=== PATIENT | female | born 1945 | race Caucasian/White ===

== ENCOUNTER 2016-12-21 20:40 | Emergency (ER) | payer MEDICARE, BC ==
[~2016-12-21] VITALS: Ht 157.5 cm; Wt 52.9 kg
[2016-12-21 21:58] LABS: BLOOD UREA NITROGEN 13 mg/dL (7-18)
[2016-12-21 22:04] LABS: IS PT STATUS REG ER OR PRE ER? YES
[2016-12-21 23:09] VITALS: BP 110/54
== END 2016-12-21 23:19 | disposition home or self-care (01) ==
LOC: ED 23:06
DX: R00.2 Palpitations (principal); Z88.0 Allergy status to penicillin; Z88.8 Allergy status to other drugs, medicaments and biological substances
CPT/HCPCS: 36415; 71010; 80048; 80162; 82040; 83735; 84443; 84484; 85025; 93005; 99285

== ENCOUNTER 2017-05-23 16:39 | Emergency (ER) | payer MEDICARE, BC ==
[~2017-05-23] VITALS: Ht 160 cm; Wt 52.0 kg
[2017-05-23] MEDS ORDERED: KETOROLAC 30 MG/1 ML IM ONE (17:00)
[2017-05-23] MEDS ORDERED: KETOROLAC 30 MG/1 ML ONE (17:40)
[2017-05-23] MEDS ORDERED: ONDANSETRON ODT 4 MG ONE (17:48)
[2017-05-23] MEDS ORDERED: HYDROmorphone 2 MG/ML, 1ML ONE (17:50)
[2017-05-23] MEDS ORDERED: HYDROmorphone 1 MG/ML, 1ML IM ONE (18:00)
[2017-05-23] MEDS ORDERED: ONDANSETRON ODT 4 MG PO ONE (18:00)
[2017-05-23 19:46] VITALS: BP 144/78
== END 2017-05-23 19:49 | disposition home or self-care (01) ==
LOC: ED 19:43
DX: S00.03XA Contusion of scalp, initial encounter (principal); M79.7 Fibromyalgia; Z98.1 Arthrodesis status; W01.0XXA Fall on same level from slipping, tripping and stumbling without subsequent striking against object, initial encounter; Y93.89 Activity, other specified; Y99.8 Other external cause status; Y92.89 Other specified places as the place of occurrence of the external cause
CPT/HCPCS: 70450; 72110; 72125; 96372; 99284; J1170; Q0162

== ENCOUNTER 2017-06-05 19:06 | Emergency (ER) | payer MEDICARE, BC ==
[~2017-06-05] VITALS: Ht 160 cm; Wt 52.7 kg
[2017-06-05] MEDS ORDERED: ASPIRIN 81 MG TABLET CHEW ONE (19:50)
[2017-06-05] MEDS ORDERED: DIGO62.5 PO (20:00)
[2017-06-05] MEDS ORDERED: ASPIRIN 81 MG TABLET CHEW PO ONE (20:00)
[2017-06-05 20:02] LABS: BASOPHILS # (AUTO) 0.03 x10^3/uL (0-0.1); BASOPHILS % (AUTO) 0 % (0-1); EOSINOPHILS # (AUTO) 0.18 x10^3/uL (0-0.4); EOSINOPHILS % (AUTO) 2 % (1-7); LYMPHOCYTES # (AUTO) 2.46 x10^3/uL (1-3.4); LYMPHOCYTES % (AUTO) 26 % (22-44); MD NO; MEAN CORPUSCULAR HEMOGLOBIN 31.8 pg (27.0-34.8); MEAN CORPUSCULAR HGB CONC 33.2 g/dL (32.4-35.8); MEAN CORPUSCULAR VOLUME 95.8 fL (80-100); MONOCYTES % (AUTO) 6 % (2-9); NEUTROPHILS # (AUTO) 6.28 x10^3/uL (1.8-6.8); NEUTROPHILS % (AUTO) 66 % (42-75); PLATELET COUNT 246 x10^3/uL (130-400); RED BLOOD COUNT 4.64 x10^6/uL (3.82-5.3); RED CELL DISTRIBUTION WIDTH 13.5 % (9.6-15.2)
[2017-06-05 20:15] LABS: ALBUMIN 3.7 g/dL (3.4-5.0); ANION GAP 6 mmol/L (5-15); CHLORIDE 100 mmol/L (98-107)
[2017-06-05 20:20] LABS: ALANINE AMINOTRANSFERASE 45 U/L (12-78); ALKALINE PHOSPHATASE 51 U/L (45-117); BILIRUBIN,TOTAL 0.4 mg/dL (0.2-1.0); CREATININE 0.61 mg/dL (0.55-1.02); TROPONIN I < 0.015 ng/mL (0.000-0.045)
[2017-06-05] MEDS ORDERED: AMITRIPTYLINE 25 MG TABLET PO ONE (21:18)
[2017-06-05] MEDS ORDERED: AMITRIPTYLINE 50 MG TABLET PO ONE (21:18)
[2017-06-05 21:58] VITALS: BP 138/81
== END 2017-06-05 22:00 | disposition home or self-care (01) ==
LOC: ED 21:54
DX: J20.8 Acute bronchitis due to other specified organisms (principal); M94.0 Chondrocostal junction syndrome [Tietze]; I25.2 Old myocardial infarction; Z87.891 Personal history of nicotine dependence; Z86.73 Personal history of transient ischemic attack (TIA), and cerebral infarction without residual deficits
CPT/HCPCS: 36415; 71046; 80053; 83880; 84484; 85025; 93005; 99285

== ENCOUNTER 2017-06-07 07:45 | Emergency (ER) | payer MEDICARE, BC ==
[~2017-06-07] VITALS: Ht 160 cm; Wt 53.0 kg
[~2017-06-07 07:45] MED LIST: DIGO62.5 PO
[2017-06-07 12:38] LABS: MICROSCOPIC INDICATED
[2017-06-07 13:05] LABS: CULTURE INDICATED? YES
[2017-06-07 14:06] VITALS: BP 115/75
== END 2017-06-07 14:09 | disposition home or self-care (01) ==
LOC: ED 09:19
DX: F20.0 Paranoid schizophrenia (principal); N30.00 Acute cystitis without hematuria; Z86.73 Personal history of transient ischemic attack (TIA), and cerebral infarction without residual deficits; Z87.891 Personal history of nicotine dependence; I25.2 Old myocardial infarction
CPT/HCPCS: 81001; 87077; 87086; 87186; 99284

== ENCOUNTER 2017-10-22 14:23 | Inpatient (IN) | payer MEDICARE, BC ==
[~2017-10-22] VITALS: Ht 160 cm; Wt 58.8 kg
[~2017-10-22 14:23] MED LIST changes: +AMLO5TAB2 PO; +ARIP5TAB13 PO; +DIGO250T PO; -DIGO62.5 PO; +DIGO62.52 PO; +DONE10TA56 PO; +GABA300C10 PO; +LEVO125T5 PO; +LIOT5TAB10 PO; +LOSA25TA5 PO; +MEMA10TA PO; +MISO100T PO; +TRAZ50TA18 PO
[2017-10-22] MEDS ORDERED: SODIUM CHLORIDE 0.9% 1,000 ML IV ONE ×2 (15:06→17:47)
[2017-10-22] MEDS ORDERED: SODIUM CHLORIDE 0.9% 1,000ML IVBOLUS ONE (15:30)
[2017-10-22] MEDS ORDERED: SODIUM CHLORIDE FLUSH 10ML SYR IVF ONE (15:30)
[2017-10-22 15:44] LABS: CULTURE INDICATED? YES; MICROSCOPIC INDICATED
[2017-10-22] MEDS ORDERED: LOSA50TA6 PO (16:00)
[2017-10-22] MEDS ORDERED: TEMA15CA PO (16:00)
[2017-10-22] MEDS ORDERED: NAPR-850 PO (16:00)
[2017-10-22] MEDS ORDERED: VIT B6 PO (16:00)
[2017-10-22 16:01] LABS: BASOPHILS % (AUTO) 0 % (0-1); EOSINOPHILS # (AUTO) 0.04 x10^3/uL (0-0.4); EOSINOPHILS % (AUTO) 0 % (1-7); LYMPHOCYTES # (AUTO) 0.57 x10^3/uL (1-3.4); LYMPHOCYTES % (AUTO) 5 % (22-44); MD NO; MEAN CORPUSCULAR HEMOGLOBIN 31.3 pg (27.0-34.8); MEAN CORPUSCULAR HGB CONC 33.9 g/dL (32.4-35.8); MEAN CORPUSCULAR VOLUME 92.4 fL (80-100); MONOCYTES % (AUTO) 4 % (2-9); NEUTROPHILS # (AUTO) 10.89 x10^3/uL (1.8-6.8); NEUTROPHILS % (AUTO) 91 % (42-75); PLATELET COUNT 169 x10^3/uL (130-400); RED BLOOD COUNT 4.54 x10^6/uL (3.82-5.3); RED CELL DISTRIBUTION WIDTH 13.5 % (9.6-15.2)
[2017-10-22 16:12] LABS: ALBUMIN 3.5 g/dL (3.4-5.0); ANION GAP 7 mmol/L (5-15); CALCIUM 9.1 mg/dL (8.5-10.1); CHLORIDE 108 mmol/L (98-107)
[2017-10-22 16:26] LABS: ALANINE AMINOTRANSFERASE 25 U/L (12-78); ALKALINE PHOSPHATASE 33 U/L (45-117); CREATININE 0.63 mg/dL (0.55-1.02)
[2017-10-22 16:27] LABS: ACETONE, SERUM Negative (Negative)
[2017-10-22] MEDS ORDERED: CEFTRIAXONE PMX 1GM/50ML 50 ML IV ONE (17:30)
[2017-10-22] MEDS ORDERED: SODIUM CHLORIDE FLUSH 10ML SYR IVF PRN (18:00)
[2017-10-22] MEDS ORDERED: CEFTRIAXONE PMX 1GM/50ML 50 ML ONE (18:19)
[2017-10-22] MEDS: CEFTRIAXONE PMX 1GM/50ML 50 ML IV SCH (18:29)
[2017-10-22] MEDS ORDERED: ONDANSETRON 2MG/ML, 2ML IVPush PRN (18:30)
[2017-10-22] MEDS ORDERED: ACETAMINOPHEN 325 MG TABLET PO PRN (18:30)
[2017-10-22 18:40] LABS: FREE T4 (FREE THYROXINE) 1.33 ng/dL (0.76-1.46); THYROID STIMULATING HORMONE 0.03 mIU/L (0.358-3.740)
[2017-10-22] MEDS: HEPARIN 5,000 UNITS/ML, 1ML SQ SCH (19:27)
[2017-10-22] MEDS: NAPROXEN 500 MG TABLET PO SCH (19:28)
[2017-10-22] MEDS: TEMAZEPAM 15 MG CAPSULE PO SCH (19:28)
[2017-10-22] MEDS: ARIPIPRAZOLE 5 MG TABLET PO SCH (19:29)
[2017-10-22] MEDS: LOSARTAN 50MG TABLET PO SCH (19:30)
[2017-10-22] MEDS: GABAPENTIN 300 MG CAPSULE PO SCH (19:30)
[2017-10-22] MEDS: PYRIDOXINE 50MG TABLET PO SCH (19:30)
[2017-10-22] MEDS: NS + 20MEQ KCL 1,000 ML IV SCH (19:31)
[2017-10-22 20:30] VITALS: BP 101/56
[2017-10-22 22:55] LABS: CLOSTRIDIUM DIFFICILE ANTIGEN NEGATIVE; CLOSTRIDIUM DIFFICILE TOXIN NEGATIVE (Negative)
[2017-10-23 01:07] VITALS: BP 102/57
[2017-10-23 04:52] LABS: BASOPHILS # (AUTO) 0.01 x10^3/uL (0-0.1); BASOPHILS % (AUTO) 0 % (0-1); EOSINOPHILS # (AUTO) 0.24 x10^3/uL (0-0.4); EOSINOPHILS % (AUTO) 3 % (1-7); LYMPHOCYTES # (AUTO) 1.63 x10^3/uL (1-3.4); LYMPHOCYTES % (AUTO) 22 % (22-44); MD NO; MEAN CORPUSCULAR HEMOGLOBIN 30.8 pg (27.0-34.8); MEAN CORPUSCULAR HGB CONC 33.6 g/dL (32.4-35.8); MEAN CORPUSCULAR VOLUME 91.7 fL (80-100); MEAN PLATELET VOLUME 9.4 fL (7.4-10.4); MONOCYTES # (AUTO) 0.72 x10^3/uL (0.2-0.8); MONOCYTES % (AUTO) 10 % (2-9); NEUTROPHILS # (AUTO) 4.99 x10^3/uL (1.8-6.8); NEUTROPHILS % (AUTO) 66 % (42-75); PLATELET COUNT 144 x10^3/uL (130-400); RED BLOOD COUNT 3.98 x10^6/uL (3.82-5.3); RED CELL DISTRIBUTION WIDTH 13.9 % (9.6-15.2)
[2017-10-23 05:09] LABS: ALANINE AMINOTRANSFERASE 21 U/L (12-78); ALBUMIN 2.8 g/dL (3.4-5.0); ANION GAP 6 mmol/L (5-15); CALCIUM 8.8 mg/dL (8.5-10.1); CHLORIDE 111 mmol/L (98-107); CREATININE 0.49 mg/dL (0.55-1.02)
[2017-10-23 05:10] LABS: ALKALINE PHOSPHATASE 28 U/L (45-117); BILIRUBIN,TOTAL 0.8 mg/dL (0.2-1.0); TOTAL PROTEIN 5.9 g/dL (6.4-8.2)
[2017-10-23] MEDS: LEVOTHYROXINE 125 MCG TABLET PO SCH (05:22)
[2017-10-23] MEDS: HEPARIN 5,000 UNITS/ML, 1ML SQ SCH ×3 (05:22→18:30)
[2017-10-23] MEDS: NS + 20MEQ KCL 1,000 ML IV SCH ×2 (05:23→21:05)
[2017-10-23 07:17] VITALS: BP 112/63
[2017-10-23] MEDS: DIGOXIN 0.25 MG TABLET PO SCH (11:46)
[2017-10-23] MEDS: NAPROXEN 500 MG TABLET PO SCH ×2 (11:46→21:34)
[2017-10-23] MEDS: GABAPENTIN 300 MG CAPSULE PO SCH ×2 (11:46→21:34)
[2017-10-23] MEDS: PYRIDOXINE 50MG TABLET PO SCH ×2 (11:46→21:34)
[2017-10-23] MEDS: AMLODIPINE 5 MG TABLET PO SCH (11:47)
[2017-10-23] MEDS: LIOTHYRONINE 5 MCG TABLET PO SCH (11:47)
[2017-10-23 12:52] VITALS: BP 122/68
[2017-10-23] MEDS: CEFTRIAXONE PMX 1GM/50ML 50 ML IV SCH (19:21)
[2017-10-23 19:41] VITALS: BP 127/66
[2017-10-23] MEDS: ARIPIPRAZOLE 5 MG TABLET PO SCH (21:00)
[2017-10-23 21:33] VITALS: BP 146/76
[2017-10-23] MEDS: TEMAZEPAM 15 MG CAPSULE PO SCH (21:33)
[2017-10-23] MEDS: LOSARTAN 50MG TABLET PO SCH (21:34)
[2017-10-24] MEDS: HEPARIN 5,000 UNITS/ML, 1ML SQ SCH ×3 (02:50→18:45)
[2017-10-24 03:12] VITALS: BP 134/67
[2017-10-24 04:55] LABS: BASOPHILS # (AUTO) 0.01 x10^3/uL (0-0.1); BASOPHILS % (AUTO) 0 % (0-1); EOSINOPHILS # (AUTO) 0.31 x10^3/uL (0-0.4); EOSINOPHILS % (AUTO) 4 % (1-7); LYMPHOCYTES # (AUTO) 1.82 x10^3/uL (1-3.4); LYMPHOCYTES % (AUTO) 24 % (22-44); MD NO; MEAN CORPUSCULAR HEMOGLOBIN 30.5 pg (27.0-34.8); MEAN CORPUSCULAR HGB CONC 33.5 g/dL (32.4-35.8); MEAN CORPUSCULAR VOLUME 91.1 fL (80-100); MEAN PLATELET VOLUME 9.2 fL (7.4-10.4); MONOCYTES # (AUTO) 0.98 x10^3/uL (0.2-0.8); MONOCYTES % (AUTO) 13 % (2-9); NEUTROPHILS # (AUTO) 4.38 x10^3/uL (1.8-6.8); NEUTROPHILS % (AUTO) 58 % (42-75); PLATELET COUNT 145 x10^3/uL (130-400); RED BLOOD COUNT 3.98 x10^6/uL (3.82-5.3)
[2017-10-24 05:08] LABS: ANION GAP 8 mmol/L (5-15); CALCIUM 8.7 mg/dL (8.5-10.1); CHLORIDE 110 mmol/L (98-107)
[2017-10-24] MEDS: LEVOTHYROXINE 125 MCG TABLET PO SCH (06:11)
[2017-10-24 06:42] VITALS: BP 123/67
[2017-10-24] MEDS: NS + 20MEQ KCL 1,000 ML IV SCH (09:20)
[2017-10-24] MEDS: NAPROXEN 500 MG TABLET PO SCH ×2 (09:49→21:30)
[2017-10-24] MEDS: AMLODIPINE 5 MG TABLET PO SCH (09:49)
[2017-10-24] MEDS: LIOTHYRONINE 5 MCG TABLET PO SCH (09:49)
[2017-10-24] MEDS: DIGOXIN 0.25 MG TABLET PO SCH (09:49)
[2017-10-24] MEDS: PYRIDOXINE 50MG TABLET PO SCH ×2 (09:50→21:30)
[2017-10-24] MEDS: GABAPENTIN 300 MG CAPSULE PO SCH ×2 (09:50→21:29)
[2017-10-24 14:10] VITALS: BP 113/69
[2017-10-24] MEDS: CEFTRIAXONE PMX 1GM/50ML 50 ML IV SCH (18:38)
[2017-10-24 20:00] VITALS: BP 133/67
[2017-10-24] MEDS: ARIPIPRAZOLE 5 MG TABLET PO SCH (21:00)
[2017-10-24] MEDS: LOSARTAN 50MG TABLET PO SCH (21:29)
[2017-10-24] MEDS: TEMAZEPAM 15 MG CAPSULE PO SCH (21:29)
[2017-10-25 01:02] VITALS: BP 125/67
[2017-10-25] MEDS: HEPARIN 5,000 UNITS/ML, 1ML SQ SCH ×3 (03:15→17:49)
[2017-10-25 05:30] LABS: CHLORIDE 108 mmol/L (98-107)
[2017-10-25 05:36] LABS: ANION GAP 8 mmol/L (5-15); CALCIUM 8.7 mg/dL (8.5-10.1); CREATININE 0.51 mg/dL (0.55-1.02)
[2017-10-25] MEDS: LEVOTHYROXINE 125 MCG TABLET PO SCH (05:39)
[2017-10-25 07:44] VITALS: BP 115/58
[2017-10-25] MEDS: DIGOXIN 0.25 MG TABLET PO SCH (08:55)
[2017-10-25] MEDS: NAPROXEN 500 MG TABLET PO SCH ×2 (08:55→21:02)
[2017-10-25] MEDS: AMLODIPINE 5 MG TABLET PO SCH (08:56)
[2017-10-25] MEDS: LIOTHYRONINE 5 MCG TABLET PO SCH (08:58)
[2017-10-25] MEDS: PYRIDOXINE 50MG TABLET PO SCH ×2 (08:58→21:09)
[2017-10-25] MEDS: GABAPENTIN 300 MG CAPSULE PO SCH ×2 (08:59→21:03)
[2017-10-25 13:10] VITALS: BP 127/66
[2017-10-25 18:33] VITALS: BP 128/65
[2017-10-25] MEDS: ARIPIPRAZOLE 5 MG TABLET PO SCH (21:00)
[2017-10-25] MEDS: CEFDINIR 300 MG CAPSULE PO SCH (21:02)
[2017-10-25] MEDS: LOSARTAN 50MG TABLET PO SCH (21:03)
[2017-10-25] MEDS: TEMAZEPAM 15 MG CAPSULE PO SCH (21:09)
[2017-10-26 00:56] VITALS: BP 145/80
[2017-10-26] MEDS: HEPARIN 5,000 UNITS/ML, 1ML SQ SCH ×3 (02:30→18:30)
[2017-10-26] MEDS: LEVOTHYROXINE 125 MCG TABLET PO SCH (05:46)
[2017-10-26 08:00] VITALS: BP 119/65
[2017-10-26] MEDS: GABAPENTIN 300 MG CAPSULE PO SCH ×2 (09:56→20:43)
[2017-10-26] MEDS: PYRIDOXINE 50MG TABLET PO SCH ×2 (09:56→20:44)
[2017-10-26] MEDS: CEFDINIR 300 MG CAPSULE PO SCH (09:56)
[2017-10-26] MEDS: NAPROXEN 500 MG TABLET PO SCH ×2 (09:57→20:43)
[2017-10-26] MEDS: DIGOXIN 0.25 MG TABLET PO SCH (09:58)
[2017-10-26] MEDS: AMLODIPINE 5 MG TABLET PO SCH (09:58)
[2017-10-26] MEDS: LIOTHYRONINE 5 MCG TABLET PO SCH (09:58)
[2017-10-26] MEDS ORDERED: INSULIN GLARGINE 100 UNITS/ML, PEN SQ-INSULIN ONE (12:30)
[2017-10-26 14:00] VITALS: BP 122/76
[2017-10-26 19:49] VITALS: BP 125/67
[2017-10-26] MEDS: ARIPIPRAZOLE 5 MG TABLET PO SCH (20:44)
[2017-10-26] MEDS: LOSARTAN 50MG TABLET PO SCH (20:44)
[2017-10-26] MEDS: TEMAZEPAM 15 MG CAPSULE PO SCH (20:54)
[2017-10-27 00:17] VITALS: BP 121/63
[2017-10-27] MEDS: HEPARIN 5,000 UNITS/ML, 1ML SQ SCH ×3 (03:20→17:53)
[2017-10-27] MEDS: LEVOTHYROXINE 125 MCG TABLET PO SCH (06:28)
[2017-10-27 08:23] VITALS: BP 107/63
[2017-10-27] MEDS: DIGOXIN 0.25 MG TABLET PO SCH (08:42)
[2017-10-27] MEDS: AMLODIPINE 5 MG TABLET PO SCH (08:43)
[2017-10-27] MEDS: NAPROXEN 500 MG TABLET PO SCH ×2 (08:58→20:23)
[2017-10-27] MEDS: LIOTHYRONINE 5 MCG TABLET PO SCH (08:58)
[2017-10-27] MEDS: GABAPENTIN 300 MG CAPSULE PO SCH ×2 (08:58→20:22)
[2017-10-27] MEDS: PYRIDOXINE 50MG TABLET PO SCH ×2 (10:14→20:22)
[2017-10-27 14:28] VITALS: BP 120/65
[2017-10-27] MEDS ORDERED: AMLO5TAB2 PO (16:23)
[2017-10-27] MEDS ORDERED: ONDA4TAB13 SL (16:23)
[2017-10-27 19:18] VITALS: BP 130/68
[2017-10-27] MEDS: TEMAZEPAM 15 MG CAPSULE PO SCH (20:21)
[2017-10-27] MEDS: ARIPIPRAZOLE 5 MG TABLET PO SCH (20:22)
[2017-10-27] MEDS: LOSARTAN 50MG TABLET PO SCH (20:22)
[2017-10-28 01:33] VITALS: BP 122/64
[2017-10-28] MEDS: HEPARIN 5,000 UNITS/ML, 1ML SQ SCH ×3 (02:30→18:08)
[2017-10-28] MEDS: LEVOTHYROXINE 125 MCG TABLET PO SCH (06:19)
[2017-10-28 07:56] VITALS: BP 102/54
[2017-10-28] MEDS: LIOTHYRONINE 5 MCG TABLET PO SCH (11:09)
[2017-10-28] MEDS: DIGOXIN 0.25 MG TABLET PO SCH (11:09)
[2017-10-28] MEDS: GABAPENTIN 300 MG CAPSULE PO SCH ×2 (11:10→20:56)
[2017-10-28] MEDS: PYRIDOXINE 50MG TABLET PO SCH ×2 (11:10→20:54)
[2017-10-28] MEDS: AMLODIPINE 5 MG TABLET PO SCH (11:10)
[2017-10-28] MEDS: NAPROXEN 500 MG TABLET PO SCH ×2 (11:11→20:55)
[2017-10-28 14:19] VITALS: BP 113/65
[2017-10-28 19:44] VITALS: BP 131/71
[2017-10-28] MEDS: LOSARTAN 50MG TABLET PO SCH (20:55)
[2017-10-28] MEDS: TEMAZEPAM 15 MG CAPSULE PO SCH (20:56)
[2017-10-28] MEDS: ARIPIPRAZOLE 5 MG TABLET PO SCH (20:57)
[2017-10-29 01:26] VITALS: BP 124/66
[2017-10-29] MEDS: HEPARIN 5,000 UNITS/ML, 1ML SQ SCH ×3 (05:00→21:00)
[2017-10-29] MEDS: LEVOTHYROXINE 125 MCG TABLET PO SCH (05:59)
[2017-10-29] MEDS: NAPROXEN 500 MG TABLET PO SCH ×2 (09:00→21:00)
[2017-10-29 09:01] VITALS: BP 126/72
[2017-10-29] MEDS: DIGOXIN 0.25 MG TABLET PO SCH (09:35)
[2017-10-29] MEDS: AMLODIPINE 5 MG TABLET PO SCH (09:35)
[2017-10-29] MEDS: LIOTHYRONINE 5 MCG TABLET PO SCH (09:36)
[2017-10-29] MEDS: GABAPENTIN 300 MG CAPSULE PO SCH ×2 (09:36→21:40)
[2017-10-29] MEDS: PYRIDOXINE 50MG TABLET PO SCH ×2 (09:42→21:41)
[2017-10-29 14:43] VITALS: BP 127/70
[2017-10-29 19:18] VITALS: BP 136/68
[2017-10-29] MEDS: ARIPIPRAZOLE 5 MG TABLET PO SCH (21:00)
[2017-10-29] MEDS: LOSARTAN 50MG TABLET PO SCH (21:40)
[2017-10-29] MEDS: TEMAZEPAM 15 MG CAPSULE PO SCH (21:41)
[2017-10-30] MEDS: HEPARIN 5,000 UNITS/ML, 1ML SQ SCH (00:52)
[2017-10-30 01:36] VITALS: BP 144/72
[2017-10-30 05:01] LABS: BASOPHILS # (AUTO) 0.04 x10^3/uL (0-0.1); BASOPHILS % (AUTO) 1 % (0-1); EOSINOPHILS # (AUTO) 0.42 x10^3/uL (0-0.4); EOSINOPHILS % (AUTO) 5 % (1-7); LYMPHOCYTES # (AUTO) 3.04 x10^3/uL (1-3.4); LYMPHOCYTES % (AUTO) 33 % (22-44); MD NO; MEAN CORPUSCULAR HEMOGLOBIN 30.7 pg (27.0-34.8); MEAN CORPUSCULAR HGB CONC 33.3 g/dL (32.4-35.8); MEAN CORPUSCULAR VOLUME 92.3 fL (80-100); MEAN PLATELET VOLUME 9.2 fL (7.4-10.4); MONOCYTES # (AUTO) 0.85 x10^3/uL (0.2-0.8); MONOCYTES % (AUTO) 9 % (2-9); NEUTROPHILS # (AUTO) 4.78 x10^3/uL (1.8-6.8); NEUTROPHILS % (AUTO) 52 % (42-75); PLATELET COUNT 197 x10^3/uL (130-400); RED BLOOD COUNT 4.29 x10^6/uL (3.82-5.3); RED CELL DISTRIBUTION WIDTH 13.6 % (9.6-15.2)
[2017-10-30 05:09] LABS: ALBUMIN 3.4 g/dL (3.4-5.0); ANION GAP 5 mmol/L (5-15); CALCIUM 9.4 mg/dL (8.5-10.1); CHLORIDE 108 mmol/L (98-107)
[2017-10-30 05:14] LABS: ALANINE AMINOTRANSFERASE 35 U/L (12-78); ALKALINE PHOSPHATASE 39 U/L (45-117); BILIRUBIN,TOTAL 0.4 mg/dL (0.2-1.0); TOTAL PROTEIN 6.7 g/dL (6.4-8.2)
[2017-10-30] MEDS: LEVOTHYROXINE 125 MCG TABLET PO SCH (05:43)
[2017-10-30 08:34] VITALS: BP 116/65
[2017-10-30] MEDS ORDERED: NYSTATIN CRM 15GM TP PRN (09:00)
[2017-10-30] MEDS: NAPROXEN 500 MG TABLET PO SCH (09:00)
[2017-10-30] MEDS: GABAPENTIN 300 MG CAPSULE PO SCH (09:45)
[2017-10-30] MEDS: PYRIDOXINE 50MG TABLET PO SCH (09:45)
[2017-10-30] MEDS: LIOTHYRONINE 5 MCG TABLET PO SCH (09:46)
[2017-10-30] MEDS: DIGOXIN 0.25 MG TABLET PO SCH (09:47)
[2017-10-30] MEDS: AMLODIPINE 5 MG TABLET PO SCH (09:55)
[2017-10-30 14:00] VITALS: BP 128/69
[2017-10-30] MEDS ORDERED: ONDA4TAB13 SL (16:59)
== END 2017-10-30 15:04 | disposition home or self-care (01) | DRG 392 ==
LOC: ED 17:39 → EDIP 17:47 → 3NE 18:35
PROVIDERS: ADMIT Hospitalist; ATTEND Internal Medicine
DX: A08.11 Acute gastroenteropathy due to Norwalk agent (principal); N30.00 Acute cystitis without hematuria; I10 Essential (primary) hypertension; I25.2 Old myocardial infarction; Z86.73 Personal history of transient ischemic attack (TIA), and cerebral infarction without residual deficits; I25.10 Atherosclerotic heart disease of native coronary artery without angina pectoris; F03.90 Unspecified dementia, unspecified severity, without behavioral disturbance, psychotic disturbance, mood disturbance, and anxiety; E03.9 Hypothyroidism, unspecified; E86.0 Dehydration; F20.9 Schizophrenia, unspecified; Z98.1 Arthrodesis status; Z90.49 Acquired absence of other specified parts of digestive tract; Z88.0 Allergy status to penicillin; Z88.8 Allergy status to other drugs, medicaments and biological substances
CPT/HCPCS: 36415; 74022; 80048; 80053; 80162; 81001; 82010; 83605; 83690; 83735; 84100; 84439; 84443; 84481; 85025; 87040; 87046; 87086; 87324; 87427; 87798; 89055; 93005; 96360; 96361; J0696; J1644; J3480; J7030

== ENCOUNTER 2018-02-23 19:13 | Inpatient (IN) | payer MEDICARE, BC ==
[~2018-02-23] VITALS: Ht 160 cm; Wt 53.0 kg
[~2018-02-23 19:13] MED LIST changes: -AMLO5TAB2 PO; +AMLO5TAB7 PO; -LOSA25TA5 PO; +LOSA25TA6 PO; +LOSA50TA7 PO; +NAPR-850 PO; +ONDA4TAB13 SL; +TEMA15CA PO; +TRAZ-136 PO; -TRAZ50TA18 PO; +VIT B6 PO
[2018-02-23] MEDS ORDERED: ZIPRASIDONE 20 MG INJ IM ONE ×3 (19:17→20:00)
[2018-02-23] MEDS ORDERED: LORazepam 2 MG/ML, 1ML ONE ×2 (20:17→21:06)
[2018-02-23] MEDS ORDERED: LORazepam 2 MG/ML, 1ML IM ONE (20:30)
[2018-02-23] MEDS ORDERED: LORazepam 2 MG/ML, 1ML IVPush ONE (21:30)
[2018-02-23 21:34] LABS: MEAN CORPUSCULAR HEMOGLOBIN 30.9 pg (27.0-34.8); MEAN CORPUSCULAR HGB CONC 33.5 g/dL (32.4-35.8); MEAN CORPUSCULAR VOLUME 92.1 fL (80-100); MEAN PLATELET VOLUME 9.2 fL (7.4-10.4); PLATELET COUNT 257 x10^3/uL (130-400); RED BLOOD COUNT 4.62 x10^6/uL (3.82-5.3); RED CELL DISTRIBUTION WIDTH 13.8 % (9.6-15.2)
[2018-02-23 21:40] LABS: ALANINE AMINOTRANSFERASE 103 U/L (12-78); ALBUMIN 4.6 g/dL (3.4-5.0); ANION GAP 14 mmol/L (5-15); CALCIUM 9.7 mg/dL (8.5-10.1); CHLORIDE 110 mmol/L (98-107)
[2018-02-23 21:50] LABS: BASOPHILS # (AUTO) 0.03 x10^3/uL (0-0.1); BASOPHILS % (AUTO) 0 % (0-1); EOSINOPHILS % (AUTO) 0 % (1-7); LYMPHOCYTES # (AUTO) 1.44 x10^3/uL (1-3.4); LYMPHOCYTES % (AUTO) 8 % (22-44); MD SCAN; MONOCYTES # (AUTO) 0.93 x10^3/uL (0.2-0.8); MONOCYTES % (AUTO) 5 % (2-9); NEUTROPHILS % (AUTO) 87 % (42-75)
[2018-02-23 21:54] LABS: ALKALINE PHOSPHATASE 51 U/L (45-117); CREATININE 0.89 mg/dL (0.55-1.02)
[2018-02-23] MEDS ORDERED: NAPR-685 PO (21:59)
[2018-02-23] MEDS ORDERED: PARO30TA3 PO (21:59)
[2018-02-23] MEDS ORDERED: DONE10TA14 PO (21:59)
[2018-02-23 22:00] LABS: MICROSCOPIC INDICATED
[2018-02-23 22:06] LABS: CULTURE INDICATED? NO
[2018-02-23] MEDS ORDERED: SODIUM CHLORIDE FLUSH 10ML SYR IVF ONE (22:30)
[2018-02-23] MEDS ORDERED: SODIUM CHLORIDE 0.9% 1,000ML IVBOLUS ONE (22:30)
[2018-02-24] MEDS ORDERED: POLYETHYLENE GLYCOL 17 GM PACKET PO PRN (00:30)
[2018-02-24] MEDS ORDERED: hydrALAzine 20 MG/ML, 1ML IVPush PRN (00:30)
[2018-02-24] MEDS ORDERED: ONDANSETRON 2MG/ML, 2ML IVPush PRN (00:30)
[2018-02-24] MEDS ORDERED: PROMETHAZINE 25 MG/ML, 1ML IM PRN (00:30)
[2018-02-24] MEDS ORDERED: DOCUSATE 100 MG CAPSULE PO PRN (00:30)
[2018-02-24] MEDS ORDERED: BISACODYL 10 MG SUPP PR PRN (00:30)
[2018-02-24] MEDS ORDERED: ONDANSETRON ODT 4 MG PO PRN ×2 (00:30)
[2018-02-24 00:42] VITALS: BP 126/77
[2018-02-24 00:48] LABS: HEMOGLOBIN A1C 5.3 % (4.2-6.3)
[2018-02-24] MEDS ORDERED: OMNIPAQUE 350 MG/ML, 100ML BOTTLE ONE (00:58)
[2018-02-24] MEDS: SODIUM CHLORIDE 0.9% 1,000 ML IV SCH ×3 (01:12→16:13)
[2018-02-24] MEDS: HEPARIN 5,000 UNITS/ML, 1ML SQ SCH ×3 (01:12→16:30)
[2018-02-24 01:39] LABS: FREE T4 (FREE THYROXINE) 1.07 ng/dL (0.76-1.46); THYROID STIMULATING HORMONE 0.066 mIU/L (0.358-3.740)
[2018-02-24] MEDS ORDERED: LEVOTHYROXINE 125 MCG TABLET PO SCH (06:00)
[2018-02-24 06:56] VITALS: BP 126/67
[2018-02-24 07:17] LABS: BASOPHILS # (AUTO) 0.14 x10^3/uL (0-0.1); BASOPHILS % (AUTO) 1 % (0-1); EOSINOPHILS # (AUTO) 0.01 x10^3/uL (0-0.4); EOSINOPHILS % (AUTO) 0 % (1-7); LYMPHOCYTES % (AUTO) 14 % (22-44); MD NO; MEAN CORPUSCULAR HEMOGLOBIN 30.9 pg (27.0-34.8); MEAN CORPUSCULAR HGB CONC 33.8 g/dL (32.4-35.8); MEAN CORPUSCULAR VOLUME 91.5 fL (80-100); MEAN PLATELET VOLUME 8.8 fL (7.4-10.4); MONOCYTES # (AUTO) 1.44 x10^3/uL (0.2-0.8); MONOCYTES % (AUTO) 9 % (2-9); NEUTROPHILS # (AUTO) 12.91 x10^3/uL (1.8-6.8); NEUTROPHILS % (AUTO) 76 % (42-75); PLATELET COUNT 226 x10^3/uL (130-400); RED BLOOD COUNT 4.14 x10^6/uL (3.82-5.3); RED CELL DISTRIBUTION WIDTH 13.8 % (9.6-15.2)
[2018-02-24 07:31] LABS: ALANINE AMINOTRANSFERASE 112 U/L (12-78); ANION GAP 9 mmol/L (5-15); CALCIUM 8.9 mg/dL (8.5-10.1); CHLORIDE 113 mmol/L (98-107); CREATININE 0.53 mg/dL (0.55-1.02)
[2018-02-24 07:33] LABS: ALKALINE PHOSPHATASE 46 U/L (45-117); CHOL/HDL RATIO 3.1; CHOLESTEROL, TOTAL 179 mg/dL (140-239); HDL CHOL % 32 % (28-40); HDL CHOLESTEROL (DIRECT) 58 mg/dL (40-60); LDL CHOLESTEROL,CALCULATED 92 mg/dL (54-169); LDL/HDL RATIO 1.6 (0.5-3.0); TOTAL PROTEIN 7.8 g/dL (6.4-8.2); TRIGLYCERIDES 147 mg/dL (50-200); VLDL CHOLESTEROL 29 mg/dL (0-25)
[2018-02-24] MEDS: DIGOXIN 0.25 MG TABLET PO SCH (08:18)
[2018-02-24] MEDS: DONEPEZIL 10 MG TABLET PO SCH (08:19)
[2018-02-24] MEDS: LIOTHYRONINE 5 MCG TABLET PO SCH (08:20)
[2018-02-24] MEDS: PYRIDOXINE 50MG TABLET PO SCH ×2 (08:24→21:00)
[2018-02-24] MEDS: GABAPENTIN 300 MG CAPSULE PO SCH ×2 (08:24→21:00)
[2018-02-24] MEDS: PAROXETINE 10 MG TABLET PO SCH (08:25)
[2018-02-24] MEDS: AMLODIPINE 2.5 MG TABLET PO SCH (08:49)
[2018-02-24] MEDS ORDERED: ZIPRASIDONE 20 MG INJ IM PRN (12:00)
[2018-02-24] MEDS ORDERED: AMIT75TA PO (13:07)
[2018-02-24] MEDS: TEMPLATE NON-FORMULARY MED. (Losartan Potassium** 100 MG) PO SCH (21:00)
[2018-02-24] MEDS: TEMAZEPAM 15 MG CAPSULE PO SCH (21:00)
[2018-02-25] MEDS: SODIUM CHLORIDE 0.9% 1,000 ML IV SCH (00:13)
[2018-02-25] MEDS: HEPARIN 5,000 UNITS/ML, 1ML SQ SCH ×3 (00:30→16:30)
[2018-02-25] MEDS: LEVOTHYROXINE 100 MCG TABLET PO SCH (06:00)
[2018-02-25] MEDS: PAROXETINE 10 MG TABLET PO SCH (09:00)
[2018-02-25] MEDS: DONEPEZIL 10 MG TABLET PO SCH (09:00)
[2018-02-25] MEDS: DIGOXIN 0.25 MG TABLET PO SCH (09:00)
[2018-02-25] MEDS: GABAPENTIN 300 MG CAPSULE PO SCH ×2 (09:00→20:55)
[2018-02-25] MEDS: PYRIDOXINE 50MG TABLET PO SCH ×2 (09:00→20:54)
[2018-02-25] MEDS: LIOTHYRONINE 5 MCG TABLET PO SCH (09:00)
[2018-02-25] MEDS: AMLODIPINE 2.5 MG TABLET PO SCH (09:00)
[2018-02-25] MEDS: TEMPLATE NON-FORMULARY MED. (Losartan Potassium** 100 MG) PO SCH (20:54)
[2018-02-25] MEDS: TEMAZEPAM 15 MG CAPSULE PO SCH (20:55)
[2018-02-26] MEDS: HEPARIN 5,000 UNITS/ML, 1ML SQ SCH ×3 (00:36→16:30)
[2018-02-26 05:42] LABS: BASOPHILS # (AUTO) 0.02 x10^3/uL (0-0.1); BASOPHILS % (AUTO) 0 % (0-1); EOSINOPHILS % (AUTO) 0 % (1-7); LYMPHOCYTES # (AUTO) 2.18 x10^3/uL (1-3.4); LYMPHOCYTES % (AUTO) 20 % (22-44); MD NO; MEAN CORPUSCULAR HGB CONC 33.3 g/dL (32.4-35.8); MEAN CORPUSCULAR VOLUME 93.2 fL (80-100); MEAN PLATELET VOLUME 9.6 fL (7.4-10.4); MONOCYTES # (AUTO) 1.14 x10^3/uL (0.2-0.8); MONOCYTES % (AUTO) 10 % (2-9); NEUTROPHILS # (AUTO) 7.62 x10^3/uL (1.8-6.8); NEUTROPHILS % (AUTO) 70 % (42-75); PLATELET COUNT 200 x10^3/uL (130-400)
[2018-02-26 05:50] LABS: ALANINE AMINOTRANSFERASE 128 U/L (12-78); ALBUMIN 3.7 g/dL (3.4-5.0); ANION GAP 9 mmol/L (5-15); CALCIUM 9.2 mg/dL (8.5-10.1); CHLORIDE 120 mmol/L (98-107); CREATININE 0.52 mg/dL (0.55-1.02)
[2018-02-26 05:52] LABS: ALKALINE PHOSPHATASE 44 U/L (45-117); BILIRUBIN,TOTAL 0.9 mg/dL (0.2-1.0); TOTAL PROTEIN 7.3 g/dL (6.4-8.2)
[2018-02-26] MEDS: LEVOTHYROXINE 100 MCG TABLET PO SCH (06:14)
[2018-02-26] MEDS: DIGOXIN 0.25 MG TABLET PO SCH (09:00)
[2018-02-26] MEDS: GABAPENTIN 300 MG CAPSULE PO SCH ×2 (09:00→20:13)
[2018-02-26] MEDS: PYRIDOXINE 50MG TABLET PO SCH ×2 (09:00→20:13)
[2018-02-26] MEDS: LIOTHYRONINE 5 MCG TABLET PO SCH (09:00)
[2018-02-26] MEDS: AMLODIPINE 2.5 MG TABLET PO SCH (09:00)
[2018-02-26] MEDS: PAROXETINE 10 MG TABLET PO SCH (09:00)
[2018-02-26] MEDS: DONEPEZIL 10 MG TABLET PO SCH (09:00)
[2018-02-26] MEDS ORDERED: GABA300C10 PO (12:14)
[2018-02-26] MEDS ORDERED: GABAPENTIN 300 MG CAPSULE PO ONE (12:25)
[2018-02-26] MEDS: DEXTROSE 5% 1,000 ML IV SCH (16:33)
[2018-02-26 19:44] VITALS: BP 112/67
[2018-02-26] MEDS: TEMAZEPAM 15 MG CAPSULE PO SCH (20:13)
[2018-02-26] MEDS: TEMPLATE NON-FORMULARY MED. (Losartan Potassium** 100 MG) PO SCH (20:13)
[2018-02-27] MEDS: HEPARIN 5,000 UNITS/ML, 1ML SQ SCH ×2 (00:30→08:30)
[2018-02-27] MEDS: DEXTROSE 5% 1,000 ML IV SCH ×2 (01:46→09:11)
[2018-02-27] MEDS: LEVOTHYROXINE 100 MCG TABLET PO SCH (06:26)
[2018-02-27 08:18] LABS: ANION GAP 6 mmol/L (5-15); CALCIUM 8.2 mg/dL (8.5-10.1); CHLORIDE 110 mmol/L (98-107); CREATININE 0.45 mg/dL (0.55-1.02)
[2018-02-27 08:20] LABS: BASOPHILS # (AUTO) 0.02 x10^3/uL (0-0.1); BASOPHILS % (AUTO) 0 % (0-1); EOSINOPHILS # (AUTO) 0.15 x10^3/uL (0-0.4); EOSINOPHILS % (AUTO) 2 % (1-7); LYMPHOCYTES # (AUTO) 2.35 x10^3/uL (1-3.4); LYMPHOCYTES % (AUTO) 27 % (22-44); MD NO; MEAN CORPUSCULAR HEMOGLOBIN 31.3 pg (27.0-34.8); MEAN PLATELET VOLUME 8.8 fL (7.4-10.4); MONOCYTES # (AUTO) 0.67 x10^3/uL (0.2-0.8); MONOCYTES % (AUTO) 8 % (2-9); NEUTROPHILS # (AUTO) 5.48 x10^3/uL (1.8-6.8); NEUTROPHILS % (AUTO) 63 % (42-75); PLATELET COUNT 173 x10^3/uL (130-400); RED BLOOD COUNT 3.94 x10^6/uL (3.82-5.3); RED CELL DISTRIBUTION WIDTH 13.9 % (9.6-15.2)
[2018-02-27] MEDS ORDERED: SERTRALINE 50MG TABLET PO SCH (09:00)
[2018-02-27] MEDS: GABAPENTIN 300 MG CAPSULE PO SCH (09:09)
[2018-02-27] MEDS: PYRIDOXINE 50MG TABLET PO SCH (09:10)
[2018-02-27] MEDS: DIGOXIN 0.25 MG TABLET PO SCH (09:10)
[2018-02-27] MEDS: LIOTHYRONINE 5 MCG TABLET PO SCH (09:10)
[2018-02-27] MEDS: AMLODIPINE 2.5 MG TABLET PO SCH (09:10)
[2018-02-27] MEDS: DONEPEZIL 10 MG TABLET PO SCH (09:22)
[2018-02-27 09:32] VITALS: BP 101/51
[2018-02-27] MEDS ORDERED: TEMAZEPAM 15 MG CAPSULE PO PRN (13:00)
[2018-02-27] MEDS ORDERED: SERTRALINE 50MG TABLET PO ONE (13:00)
[2018-02-27 13:47] VITALS: BP 119/57
[2018-02-27] MEDS: POTASSIUM CHLORIDE 20 MEQ TAB.ER.PRT PO SCH ×2 (13:59→15:46)
[2018-02-27] MEDS ORDERED: ZIPR20VI IM (15:07)
[2018-02-27] MEDS ORDERED: ONDA4TAB13 PO (15:07)
[2018-02-27] MEDS ORDERED: SERT50TA5 PO (15:07)
[2018-02-27] MEDS ORDERED: MELA3TAB2 PO (15:07)
[2018-02-27] MEDS ORDERED: LEVO125T5 PO (15:07)
[2018-02-27] MEDS ORDERED: GABA300C10 PO (15:07)
[2018-02-27] MEDS ORDERED: DOCU-131 PO (15:07)
[2018-02-27] MEDS ORDERED: MELATONIN 3 MG TABLET PO SCH (21:00)
[2018-02-28] MEDS ORDERED: SERTRALINE 50MG TABLET PO SCH (09:00)
== END 2018-02-27 16:30 | DRG 885 ==
LOC: ED 23:18 → EDIP 23:49 → 3NE 02-24 00:38
PROVIDERS: ADMIT Internal Medicine; ATTEND Internal Medicine
DX: F23 Brief psychotic disorder (principal); G93.40 Encephalopathy, unspecified; R65.10 Systemic inflammatory response syndrome (SIRS) of non-infectious origin without acute organ dysfunction; E87.2 Acidosis; E87.0 Hyperosmolality and hypernatremia; E87.1 Hypo-osmolality and hyponatremia; E86.0 Dehydration; D72.829 Elevated white blood cell count, unspecified; I10 Essential (primary) hypertension; G30.9 Alzheimer's disease, unspecified; E03.9 Hypothyroidism, unspecified; G62.9 Polyneuropathy, unspecified; F02.80 Dementia in other diseases classified elsewhere, unspecified severity, without behavioral disturbance, psychotic disturbance, mood disturbance, and anxiety; E87.6 Hypokalemia; F20.9 Schizophrenia, unspecified; F43.10 Post-traumatic stress disorder, unspecified; I25.2 Old myocardial infarction; Z86.73 Personal history of transient ischemic attack (TIA), and cerebral infarction without residual deficits; M79.7 Fibromyalgia; Z79.899 Other long term (current) drug therapy; Z90.49 Acquired absence of other specified parts of digestive tract; Z96.642 Presence of left artificial hip joint; Z98.1 Arthrodesis status; Z88.0 Allergy status to penicillin; Z88.8 Allergy status to other drugs, medicaments and biological substances
CPT/HCPCS: 36415; 70460; 71045; 74177; 80048; 80053; 80061; 80074; 80162; 81001; 82140; 82306; 82607; 83036; 83605; 83735; 84100; 84439; 84443; 85025; 87040; 93005; 96361; 96372; 96374; G0378; J1644; J3486; J7070; Q9967; J2060; J7030

== ENCOUNTER 2018-02-27 17:34 | Inpatient (IN) | payer MEDICARE, BC ==
[~2018-02-27] VITALS: Ht 158.8 cm; Wt 54.2 kg
[~2018-02-27 17:34] MED LIST changes: +AMIT75TA PO; +DOCU-131 PO; +DONE10TA14 PO; +MELA3TAB2 PO; +NAPR-685 PO; +ONDA4TAB13 PO; +PARO30TA3 PO; +SERT50TA5 PO; +ZIPR20VI IM
[2018-02-27 19:21] VITALS: BP 112/66
[2018-02-27 19:33] LABS: CHOL/HDL RATIO 3.7; FREE T4 (FREE THYROXINE) 1.22 ng/dL (0.76-1.46); LDL/HDL RATIO 1.9 (0.5-3.0); THYROID STIMULATING HORMONE 0.341 mIU/L (0.358-3.740)
[2018-02-27 20:08] VITALS: BP 112/66
[2018-02-27] MEDS: TEMAZEPAM 15 MG CAPSULE PO SCH (21:24)
[2018-02-27] MEDS: AMITRIPTYLINE 75 MG TABLET PO SCH (21:24)
[2018-02-27] MEDS: GABAPENTIN 300 MG CAPSULE PO SCH (21:24)
[2018-02-28 07:56] VITALS: BP 136/81
[2018-02-28] MEDS: GABAPENTIN 300 MG CAPSULE PO SCH ×2 (08:47→20:16)
[2018-02-28] MEDS: ACETAMINOPHEN 325 MG TABLET PO PRN ×2 (08:56→13:00)
[2018-02-28] MEDS ORDERED: DIGOXIN 0.25 MG TABLET PO SCH (09:00)
[2018-02-28] MEDS: SERTRALINE 100MG TABLET PO SCH (12:20)
[2018-02-28 19:35] VITALS: BP 121/77
[2018-02-28] MEDS: TEMAZEPAM 15 MG CAPSULE PO SCH (20:17)
[2018-02-28] MEDS: MELATONIN 3 MG TABLET PO SCH (20:17)
[2018-02-28] MEDS: AMITRIPTYLINE 75 MG TABLET PO SCH (20:17)
[2018-03-01] MEDS: LEVOTHYROXINE 50 MCG TABLET PO SCH (06:14)
[2018-03-01 07:52] VITALS: BP 137/81
[2018-03-01] MEDS: GABAPENTIN 300 MG CAPSULE PO SCH ×2 (09:02→20:23)
[2018-03-01] MEDS: SERTRALINE 100MG TABLET PO SCH (09:02)
[2018-03-01] MEDS: ACETAMINOPHEN 325 MG TABLET PO PRN ×2 (09:03→16:54)
[2018-03-01] MEDS: DOCUSATE 100 MG CAPSULE PO PRN (09:12)
[2018-03-01 20:04] VITALS: BP 122/70
[2018-03-01] MEDS: AMITRIPTYLINE 75 MG TABLET PO SCH (20:23)
[2018-03-01] MEDS: MELATONIN 3 MG TABLET PO SCH (20:23)
[2018-03-01] MEDS: TEMAZEPAM 15 MG CAPSULE PO SCH (21:28)
[2018-03-02] MEDS: LEVOTHYROXINE 50 MCG TABLET PO SCH (06:13)
[2018-03-02 08:00] VITALS: BP 121/72
[2018-03-02] MEDS: ACETAMINOPHEN 325 MG TABLET PO PRN ×3 (08:00→20:10)
[2018-03-02] MEDS: SERTRALINE 100MG TABLET PO SCH (08:00)
[2018-03-02] MEDS: DOCUSATE 100 MG CAPSULE PO PRN ×2 (08:00→20:10)
[2018-03-02] MEDS: GABAPENTIN 300 MG CAPSULE PO SCH ×2 (08:01→20:10)
[2018-03-02 19:43] VITALS: BP 108/58
[2018-03-02] MEDS: TEMAZEPAM 15 MG CAPSULE PO SCH (20:10)
[2018-03-02] MEDS: MELATONIN 3 MG TABLET PO SCH (20:10)
[2018-03-02] MEDS: AMITRIPTYLINE 75 MG TABLET PO SCH (20:10)
[2018-03-03] MEDS: DOCUSATE 100 MG CAPSULE PO PRN ×2 (07:34→20:08)
[2018-03-03] MEDS: ACETAMINOPHEN 325 MG TABLET PO PRN (07:34)
[2018-03-03] MEDS: LEVOTHYROXINE 50 MCG TABLET PO SCH (07:34)
[2018-03-03 07:55] VITALS: BP 121/86
[2018-03-03] MEDS: SERTRALINE 100MG TABLET PO SCH ×2 (09:49→09:58)
[2018-03-03] MEDS: GABAPENTIN 300 MG CAPSULE PO SCH ×2 (09:49→20:07)
[2018-03-03] MEDS: POLYETHYLENE GLYCOL 17 GM PACKET NG PRN (11:21)
[2018-03-03 19:45] VITALS: BP 116/72
[2018-03-03] MEDS: AMITRIPTYLINE 75 MG TABLET PO SCH (20:08)
[2018-03-03] MEDS: MELATONIN 3 MG TABLET PO SCH (20:08)
[2018-03-03] MEDS: BUPROPION SR 100 MG TABLET PO SCH (20:08)
[2018-03-03] MEDS: TEMAZEPAM 15 MG CAPSULE PO SCH (21:04)
[2018-03-04] MEDS: LEVOTHYROXINE 50 MCG TABLET PO SCH (07:26)
[2018-03-04 07:59] VITALS: BP 116/74
[2018-03-04] MEDS: GABAPENTIN 300 MG CAPSULE PO SCH ×2 (08:30→20:50)
[2018-03-04] MEDS: ACETAMINOPHEN 325 MG TABLET PO PRN ×2 (08:30→20:50)
[2018-03-04] MEDS: BUPROPION SR 100 MG TABLET PO SCH ×2 (08:30→20:50)
[2018-03-04] MEDS: FLUOXETINE 10 MG CAP PO SCH (08:30)
[2018-03-04] MEDS: POLYETHYLENE GLYCOL 17 GM PACKET NG PRN (12:11)
[2018-03-04] MEDS: DOCUSATE 100 MG CAPSULE PO PRN ×2 (12:11→20:50)
[2018-03-04 19:58] VITALS: BP 123/87
[2018-03-04] MEDS: MELATONIN 3 MG TABLET PO SCH (20:50)
[2018-03-04] MEDS: AMITRIPTYLINE 75 MG TABLET PO SCH (20:50)
[2018-03-04] MEDS: TEMAZEPAM 15 MG CAPSULE PO SCH (20:50)
[2018-03-05] MEDS: LEVOTHYROXINE 50 MCG TABLET PO SCH (07:20)
[2018-03-05 07:59] VITALS: BP 143/83
[2018-03-05] MEDS: POLYETHYLENE GLYCOL 17 GM PACKET NG PRN (08:29)
[2018-03-05] MEDS: GABAPENTIN 300 MG CAPSULE PO SCH ×2 (08:30→20:33)
[2018-03-05] MEDS: DOCUSATE 100 MG CAPSULE PO PRN ×2 (08:30→20:43)
[2018-03-05] MEDS: BUPROPION SR 100 MG TABLET PO SCH ×2 (08:30→20:33)
[2018-03-05] MEDS: FLUOXETINE 10 MG CAP PO SCH (08:30)
[2018-03-05] MEDS: ACETAMINOPHEN 325 MG TABLET PO PRN ×2 (09:31→14:11)
[2018-03-05 19:46] VITALS: BP 129/76
[2018-03-05] MEDS: MELATONIN 3 MG TABLET PO SCH (20:33)
[2018-03-05] MEDS: TEMAZEPAM 15 MG CAPSULE PO SCH (20:33)
[2018-03-05] MEDS: AMITRIPTYLINE 75 MG TABLET PO SCH (20:34)
[2018-03-06 07:42] VITALS: BP 137/77
[2018-03-06] MEDS: BUPROPION SR 100 MG TABLET PO SCH ×2 (08:12→20:42)
[2018-03-06] MEDS: FLUOXETINE 10 MG CAP PO SCH (08:12)
[2018-03-06] MEDS: LEVOTHYROXINE 50 MCG TABLET PO SCH (08:13)
[2018-03-06] MEDS: GABAPENTIN 300 MG CAPSULE PO SCH ×2 (08:13→20:42)
[2018-03-06] MEDS: DOCUSATE 100 MG CAPSULE PO PRN ×2 (08:50→20:42)
[2018-03-06] MEDS: ACETAMINOPHEN 325 MG TABLET PO PRN (18:38)
[2018-03-06 19:46] VITALS: BP 130/73
[2018-03-06] MEDS: AMITRIPTYLINE 75 MG TABLET PO SCH (20:42)
[2018-03-06] MEDS: TEMAZEPAM 15 MG CAPSULE PO SCH (20:42)
[2018-03-06] MEDS ORDERED: MELATONIN 5 MG TABLET PO SCH (21:00)
[2018-03-07 07:27] VITALS: BP 137/77
[2018-03-07 07:30] VITALS: BP 137/77
[2018-03-07] MEDS: LEVOTHYROXINE 50 MCG TABLET PO SCH (07:33)
[2018-03-07] MEDS: FLUOXETINE 10 MG CAP PO SCH (07:33)
[2018-03-07] MEDS: BUPROPION SR 100 MG TABLET PO SCH (07:33)
[2018-03-07] MEDS: GABAPENTIN 300 MG CAPSULE PO SCH (07:34)
[2018-03-07] MEDS: DOCUSATE 100 MG CAPSULE PO PRN (07:45)
[2018-03-07] MEDS ORDERED: BUPR-173 PO (07:50)
[2018-03-07] MEDS ORDERED: LEVO50TA PO (07:50)
[2018-03-07] MEDS ORDERED: GABA300C10 PO (07:50)
[2018-03-07] MEDS ORDERED: FLUO10CA7 PO (07:50)
[2018-03-07] MEDS ORDERED: MELA5TAB19 PO (07:50)
[2018-03-07] MEDS ORDERED: AMIT75TA PO (07:50)
[2018-03-07] MEDS: ACETAMINOPHEN 325 MG TABLET PO PRN (10:45)
== END 2018-03-07 13:15 | disposition home or self-care (01) | DRG 57 ==
LOC: UNDOADMIN 17:34 → 3E 17:34
PROVIDERS: ADMIT Psychiatry & Neurology Psychosomatic Medicine; ATTEND Psychiatry & Neurology Psychosomatic Medicine
DX: G30.9 Alzheimer's disease, unspecified (principal); F23 Brief psychotic disorder; R65.10 Systemic inflammatory response syndrome (SIRS) of non-infectious origin without acute organ dysfunction; F43.10 Post-traumatic stress disorder, unspecified; I10 Essential (primary) hypertension; E03.9 Hypothyroidism, unspecified; D72.829 Elevated white blood cell count, unspecified; G89.29 Other chronic pain; Z96.642 Presence of left artificial hip joint; F02.80 Dementia in other diseases classified elsewhere, unspecified severity, without behavioral disturbance, psychotic disturbance, mood disturbance, and anxiety; F32.9 Major depressive disorder, single episode, unspecified; G62.9 Polyneuropathy, unspecified; G47.00 Insomnia, unspecified; F42.9 Obsessive-compulsive disorder, unspecified; A60.00 Herpesviral infection of urogenital system, unspecified; Z86.73 Personal history of transient ischemic attack (TIA), and cerebral infarction without residual deficits; Z90.89 Acquired absence of other organs; Z88.8 Allergy status to other drugs, medicaments and biological substances; Z88.0 Allergy status to penicillin; Z98.1 Arthrodesis status; Z90.49 Acquired absence of other specified parts of digestive tract; Z79.899 Other long term (current) drug therapy; Z79.890 Hormone replacement therapy; Z82.49 Family history of ischemic heart disease and other diseases of the circulatory system
CPT/HCPCS: 36415; 80061; 82140; 84439; 84443; 86592; 92523-GN

== ENCOUNTER 2018-03-12 14:05 | Emergency (ER) | payer MEDICARE, BC ==
[~2018-03-12] VITALS: Ht 157.5 cm; Wt 54.0 kg
[~2018-03-12 14:05] MED LIST changes: +BUPR-173 PO; +FLUO10CA7 PO; +LEVO50TA PO; +MELA5TAB19 PO
[2018-03-12] MEDS ORDERED: SODIUM CHLORIDE 0.9% 1,000ML IVBOLUS ONE (15:00)
[2018-03-12 15:13] LABS: BASOPHILS # (AUTO) 0.03 x10^3/uL (0-0.1); BASOPHILS % (AUTO) 0 % (0-1); EOSINOPHILS # (AUTO) 0.15 x10^3/uL (0-0.4); EOSINOPHILS % (AUTO) 2 % (1-7); LYMPHOCYTES # (AUTO) 2.61 x10^3/uL (1-3.4); LYMPHOCYTES % (AUTO) 30 % (22-44); MD NO; MEAN CORPUSCULAR HEMOGLOBIN 31.2 pg (27.0-34.8); MEAN CORPUSCULAR HGB CONC 33.4 g/dL (32.4-35.8); MEAN CORPUSCULAR VOLUME 93.3 fL (80-100); MEAN PLATELET VOLUME 8.4 fL (7.4-10.4); MONOCYTES # (AUTO) 0.65 x10^3/uL (0.2-0.8); MONOCYTES % (AUTO) 7 % (2-9); NEUTROPHILS # (AUTO) 5.33 x10^3/uL (1.8-6.8); NEUTROPHILS % (AUTO) 61 % (42-75); PLATELET COUNT 225 x10^3/uL (130-400); RED BLOOD COUNT 4.07 x10^6/uL (3.82-5.3); RED CELL DISTRIBUTION WIDTH 14.5 % (9.6-15.2)
[2018-03-12 15:25] LABS: ALANINE AMINOTRANSFERASE 36 U/L (12-78); ALBUMIN 3.8 g/dL (3.4-5.0); ANION GAP 7 mmol/L (5-15); CALCIUM 9.2 mg/dL (8.5-10.1); CHLORIDE 109 mmol/L (98-107); CREATININE 0.67 mg/dL (0.55-1.02)
[2018-03-12 15:27] LABS: ALKALINE PHOSPHATASE 49 U/L (45-117); BILIRUBIN,TOTAL 0.5 mg/dL (0.2-1.0); TOTAL PROTEIN 7.8 g/dL (6.4-8.2)
[2018-03-12 17:12] VITALS: BP 131/62
== END 2018-03-12 17:14 | disposition home or self-care (01) ==
LOC: ED 16:50
DX: R13.12 Dysphagia, oropharyngeal phase (principal); K21.9 Gastro-esophageal reflux disease without esophagitis
CPT/HCPCS: 36415; 76700; 80053; 83690; 85025; 99285

== ENCOUNTER 2018-04-15 12:05 | Observation (INO) | payer MEDICARE, BC ==
[~2018-04-15] VITALS: Ht 157.5 cm; Wt 53.4 kg
[~2018-04-15 12:05] MED LIST changes: +AMLO-150 PO; -AMLO5TAB7 PO; -TRAZ-136 PO; +TRAZ50TA66 PO
[2018-04-15] MEDS ORDERED: ZIPRASIDONE 20 MG INJ IM ONE ×2 (12:49→13:30)
[2018-04-15 13:30] LABS: BASOPHILS # (AUTO) 0.02 x10^3/uL (0-0.1); BASOPHILS % (AUTO) 0 % (0-1); EOSINOPHILS # (AUTO) 0.06 x10^3/uL (0-0.4); EOSINOPHILS % (AUTO) 1 % (1-7); LYMPHOCYTES # (AUTO) 1.76 x10^3/uL (1-3.4); LYMPHOCYTES % (AUTO) 18 % (22-44); MD NO; MEAN CORPUSCULAR HEMOGLOBIN 31.9 pg (27.0-34.8); MEAN CORPUSCULAR HGB CONC 34.1 g/dL (32.4-35.8); MEAN CORPUSCULAR VOLUME 93.3 fL (80-100); MEAN PLATELET VOLUME 7.9 fL (7.4-10.4); MONOCYTES # (AUTO) 0.67 x10^3/uL (0.2-0.8); MONOCYTES % (AUTO) 7 % (2-9); NEUTROPHILS # (AUTO) 7.32 x10^3/uL (1.8-6.8); NEUTROPHILS % (AUTO) 74 % (42-75); PLATELET COUNT 323 x10^3/uL (130-400); RED BLOOD COUNT 4.23 x10^6/uL (3.82-5.3); RED CELL DISTRIBUTION WIDTH 13.8 % (9.6-15.2)
[2018-04-15 13:39] LABS: ALANINE AMINOTRANSFERASE 23 U/L (12-78); ALBUMIN 3.8 g/dL (3.4-5.0); ANION GAP 13 mmol/L (5-15); CALCIUM 9.5 mg/dL (8.5-10.1); CHLORIDE 101 mmol/L (98-107); CREATININE 0.53 mg/dL (0.55-1.02)
[2018-04-15 13:45] LABS: ALKALINE PHOSPHATASE 55 U/L (45-117); BILIRUBIN,TOTAL 0.6 mg/dL (0.2-1.0); TOTAL PROTEIN 8.1 g/dL (6.4-8.2)
[2018-04-15 13:46] LABS: SALICYLATE LEVEL < 1.7 mg/dL (2.8-20.0)
[2018-04-15 13:47] LABS: ACETAMINOPHEN < 2 mcg/mL (10-30)
[2018-04-15 18:02] LABS: AMPHETAMINE SCREEN, URINE Negative (Negative); BARBITURATE SCREEN, URINE Negative (Negative); BENZODIAZEPINE SCREEN, URINE Negative (Negative); CANNABINOID SCREEN, URINE Negative (Negative); COCAINE SCREEN, URINE Negative (Negative); METHADONE SCREEN, URINE Negative (Negative); OPIATE SCREEN, URINE Negative (Negative)
[2018-04-15] MEDS ORDERED: ONDANSETRON ODT 4 MG PO PRN (21:00)
[2018-04-15] MEDS ORDERED: DOCUSATE 100 MG CAPSULE PO PRN ×2 (21:00)
[2018-04-15] MEDS ORDERED: ZIPRASIDONE 20 MG INJ IM PRN (21:00)
[2018-04-15] MEDS: AMITRIPTYLINE 75 MG TABLET PO SCH (23:00)
[2018-04-15] MEDS: TEMAZEPAM 15 MG CAPSULE PO SCH (23:00)
[2018-04-16] MEDS: ZIPRASIDONE 20MG CAPSULE PO SCH ×3 (02:50→20:43)
[2018-04-16] MEDS: LEVOTHYROXINE 50 MCG TABLET PO SCH (06:21)
[2018-04-16] MEDS ORDERED: ZIPRASIDONE 20MG CAPSULE ONE (10:34)
[2018-04-16] MEDS ORDERED: FLUOXETINE 10 MG CAP ONE (12:14)
[2018-04-16] MEDS: FLUOXETINE 10 MG CAP PO SCH (12:24)
[2018-04-16] MEDS: DIGOXIN 0.25 MG TABLET PO SCH (12:25)
[2018-04-16] MEDS: BUPROPION 75 MG TABLET PO SCH (13:01)
[2018-04-16] MEDS ORDERED: ACETAMINOPHEN 325 MG TABLET ONE (14:22)
[2018-04-16] MEDS: ACETAMINOPHEN 325 MG TABLET PO PRN ×2 (14:24→21:35)
[2018-04-16 16:44] VITALS: BP 142/76
[2018-04-16 19:32] VITALS: BP 118/72
[2018-04-16] MEDS: TEMAZEPAM 15 MG CAPSULE PO SCH (20:43)
[2018-04-16] MEDS: AMITRIPTYLINE 75 MG TABLET PO SCH (20:43)
[2018-04-16] MEDS ORDERED: ZIPRASIDONE 20MG CAPSULE PO SCH (21:00)
[2018-04-17 07:53] VITALS: BP 117/70
[2018-04-17] MEDS: LEVOTHYROXINE 50 MCG TABLET PO SCH (08:51)
[2018-04-17] MEDS: DIGOXIN 0.25 MG TABLET PO SCH (08:52)
[2018-04-17] MEDS: ZIPRASIDONE 20MG CAPSULE PO SCH ×2 (08:52→21:44)
[2018-04-17] MEDS: BUPROPION 75 MG TABLET PO SCH (08:52)
[2018-04-17] MEDS: FLUOXETINE 10 MG CAP PO SCH (08:52)
[2018-04-17] MEDS: ACETAMINOPHEN 325 MG TABLET PO PRN ×2 (09:47→22:20)
[2018-04-17 20:13] VITALS: BP 121/84
[2018-04-17] MEDS: AMITRIPTYLINE 75 MG TABLET PO SCH (21:44)
[2018-04-17] MEDS: TEMAZEPAM 15 MG CAPSULE PO SCH (21:44)
[2018-04-18 08:16] VITALS: BP 113/77
[2018-04-18] MEDS: LEVOTHYROXINE 50 MCG TABLET PO SCH (08:22)
[2018-04-18] MEDS: BUPROPION 75 MG TABLET PO SCH (08:27)
[2018-04-18] MEDS: DIGOXIN 0.25 MG TABLET PO SCH (08:27)
[2018-04-18] MEDS: FLUOXETINE 10 MG CAP PO SCH (08:27)
[2018-04-18] MEDS: ZIPRASIDONE 20MG CAPSULE PO SCH ×2 (08:29→21:06)
[2018-04-18 19:27] VITALS: BP 120/67
[2018-04-18] MEDS: AMITRIPTYLINE 75 MG TABLET PO SCH (21:06)
[2018-04-18] MEDS: TEMAZEPAM 15 MG CAPSULE PO SCH (21:07)
[2018-04-19] MEDS: BUPROPION 75 MG TABLET PO SCH (08:13)
[2018-04-19] MEDS: FLUOXETINE 10 MG CAP PO SCH (08:13)
[2018-04-19] MEDS: LEVOTHYROXINE 50 MCG TABLET PO SCH (08:13)
[2018-04-19] MEDS: DIGOXIN 0.25 MG TABLET PO SCH (08:13)
[2018-04-19] MEDS: ZIPRASIDONE 20MG CAPSULE PO SCH ×2 (08:14→21:26)
[2018-04-19 08:30] VITALS: BP 130/72
[2018-04-19 20:41] VITALS: BP 148/87
[2018-04-19] MEDS: AMITRIPTYLINE 75 MG TABLET PO SCH (21:26)
[2018-04-19] MEDS: TEMAZEPAM 15 MG CAPSULE PO SCH (21:26)
[2018-04-20] MEDS: ACETAMINOPHEN 325 MG TABLET PO PRN ×2 (04:17→21:44)
[2018-04-20] MEDS: LEVOTHYROXINE 50 MCG TABLET PO SCH (06:39)
[2018-04-20] MEDS: FLUOXETINE 10 MG CAP PO SCH (08:16)
[2018-04-20] MEDS: ZIPRASIDONE 20MG CAPSULE PO SCH ×2 (08:16→20:18)
[2018-04-20] MEDS: BUPROPION 75 MG TABLET PO SCH (08:16)
[2018-04-20] MEDS: DIGOXIN 0.25 MG TABLET PO SCH (08:16)
[2018-04-20 08:28] VITALS: BP 136/74
[2018-04-20] MEDS: AMITRIPTYLINE 75 MG TABLET PO SCH (20:18)
[2018-04-20] MEDS: TEMAZEPAM 15 MG CAPSULE PO SCH (20:18)
[2018-04-20 20:22] VITALS: BP 143/85
[2018-04-21] MEDS: LEVOTHYROXINE 50 MCG TABLET PO SCH (05:08)
[2018-04-21 08:05] VITALS: BP 108/65
[2018-04-21] MEDS: ZIPRASIDONE 20MG CAPSULE PO SCH (09:06)
[2018-04-21] MEDS: BUPROPION 75 MG TABLET PO SCH (09:06)
[2018-04-21] MEDS: DIGOXIN 0.25 MG TABLET PO SCH (09:07)
[2018-04-21] MEDS: FLUOXETINE 10 MG CAP PO SCH (09:07)
[2018-04-21 13:45] VITALS: BP 109/78
[2018-04-21] MEDS: ACETAMINOPHEN 325 MG TABLET PO PRN (15:18)
== END 2018-04-21 16:16 ==
LOC: ED 19:40 → EDIP 20:17 → 2N 04-16 16:37
PROVIDERS: ADMIT Internal Medicine; ATTEND Internal Medicine
DX: R45.1 Restlessness and agitation (principal); F43.10 Post-traumatic stress disorder, unspecified; R41.9 Unspecified symptoms and signs involving cognitive functions and awareness; F32.9 Major depressive disorder, single episode, unspecified; G47.00 Insomnia, unspecified; E03.9 Hypothyroidism, unspecified; I10 Essential (primary) hypertension; G62.9 Polyneuropathy, unspecified; M19.90 Unspecified osteoarthritis, unspecified site; G89.29 Other chronic pain; Z79.899 Other long term (current) drug therapy; Z86.73 Personal history of transient ischemic attack (TIA), and cerebral infarction without residual deficits; Z87.891 Personal history of nicotine dependence; Z91.14 Patient's other noncompliance with medication regimen; Z96.642 Presence of left artificial hip joint; Z98.1 Arthrodesis status
CPT/HCPCS: 36415; 80053; 80162; 80307; 80329; 85025; 96372; 99284; G0378; J3486; G0480

== ENCOUNTER 2018-08-19 16:34 | Inpatient (IN) | payer MEDICARE, BC ==
[~2018-08-19] VITALS: Ht 158.8 cm; Wt 49.5 kg
[~2018-08-19 16:34] MED LIST changes: +LOSA25TA25 PO; -LOSA25TA6 PO; +LOSA50TA14 PO; -LOSA50TA7 PO; +SERT50TA28 PO; -SERT50TA5 PO
--- NOTE | 2018-08-19 16:41 | NUR ---
BIB EMS FROM OFFICE OF REGAN LOZOYA LCSW PLACED ON HOLD FOR PARANOID, DELUSIONAL BEHAVIOR. PT COOPERATIVE. CLOTHES REMOVED AND CHANGED INTO GOWN. PT PERMITTED TO LEAVE HER UNDERWEAR ON. BELONGINGS PLACED IN BELONGINGS BAG AND SECURED IN LOCKER. PT VSS, BENSON NOTED, SITTER AT DOORWAY FOR PT SAFETY.
[2018-08-19 17:28] LABS: BASOPHILS # (AUTO) 0.03 x10^3/uL (0-0.1); BASOPHILS % (AUTO) 0 % (0-1); EOSINOPHILS # (AUTO) 0.07 x10^3/uL (0-0.4); EOSINOPHILS % (AUTO) 1 % (1-7); LYMPHOCYTES # (AUTO) 2.25 x10^3/uL (1-3.4); LYMPHOCYTES % (AUTO) 23 % (22-44); MD NO; MEAN CORPUSCULAR HGB CONC 32.7 g/dL (32.4-35.8); MEAN CORPUSCULAR VOLUME 94.7 fL (80-100); MONOCYTES # (AUTO) 0.63 x10^3/uL (0.2-0.8); MONOCYTES % (AUTO) 7 % (2-9); NEUTROPHILS # (AUTO) 6.65 x10^3/uL (1.8-6.8); NEUTROPHILS % (AUTO) 69 % (42-75); PLATELET COUNT 214 x10^3/uL (130-400); RED BLOOD COUNT 4.32 x10^6/uL (3.82-5.3); RED CELL DISTRIBUTION WIDTH 14.2 % (9.6-15.2)
[2018-08-19 17:38] LABS: ALBUMIN 3.8 g/dL (3.4-5.0); ANION GAP 8 mmol/L (5-15); CALCIUM 9.3 mg/dL (8.5-10.1); CHLORIDE 106 mmol/L (98-107)
[2018-08-19 17:43] LABS: ALANINE AMINOTRANSFERASE 41 U/L (12-78); ALKALINE PHOSPHATASE 39 U/L (45-117); BILIRUBIN,TOTAL 0.5 mg/dL (0.2-1.0); CREATININE 0.53 mg/dL (0.55-1.02)
[2018-08-19 17:45] LABS: ACETAMINOPHEN < 2 mcg/mL (10-30); SALICYLATE LEVEL < 1.7 mg/dL (2.8-20.0)
--- NOTE | 2018-08-19 18:10 | NUR ---
RECEIVED REPORT FROM VANESSA ROBINS. PT RESTING IN BED. NADN. FARFAN. AWARE OF NEED FOR UDS SAMPLE. STATES SHE CANNOT PROVIDE SAMPLE AT THIS TIME. SITTER AWARE OF NEED FOR UDS AND CUP LEFT W/ SITTER.
--- NOTE | 2018-08-19 18:11 | NUR ---
SW FOR ROOM 3 TO BE REACHED AT [phone] AND SPEAK SUP EBONY. PER .NET ARCHITECT PT IS NOT WELCOME BACK TO CARE HOME. PT HAS PERSONAL BELONGINGS THERE. May GONZALEZ.
--- NOTE | 2018-08-19 18:46 | NUR ---
PT REPORT FROM SAKINA MENDEZ. THIS RN TO ASSUME CARE OF PT. PT ASKING FOR TYLENOL. NOTIFIED. ROLLER DOORS IN PLACE. CALL LIGHT WITHIN REACH.
--- NOTE | 2018-08-19 19:06 | NUR ---
REPORT GIVEN TO FORTUNATO CHAVIRA RN.
--- NOTE | 2018-08-19 20:14 | NUR ---
No immediate needs from pt. Resting comfortably on hospital bed. Provided urine sample at this time. Sent to lab.
[2018-08-19 20:36] LABS: AMPHETAMINE SCREEN, URINE Negative (Negative); BARBITURATE SCREEN, URINE Negative (Negative); BENZODIAZEPINE SCREEN, URINE Negative (Negative); CANNABINOID SCREEN, URINE Negative (Negative); COCAINE SCREEN, URINE Negative (Negative); METHADONE SCREEN, URINE Negative (Negative); OPIATE SCREEN, URINE Negative (Negative)
--- NOTE | 2018-08-19 21:22 | NUR ---
No immediate needs from pt. Resting comfortably on hospital bed.
--- NOTE | 2018-08-19 21:29 | NUR ---
PT PACKET FAXED TO [facility], [facility], [facility], [facility], [facility], [facility]
--- NOTE | 2018-08-19 21:54 | NUR ---
Pt states unable to sleep until she gets her night time medications. She is unsure of what those are. notified.
--- NOTE | 2018-08-19 22:18 | NUR ---
Pt resting comfortably on hospital bed. No immediate needs. Sitter in hallway. states no night time medications until psychiatrist evaluation. Relayed to pt. Pt on board w/ POC.
--- NOTE | 2018-08-19 22:36 | NUR ---
at bedside for assessment.
[2018-08-19 23:51] LABS: MICROSCOPIC AUTO
--- NOTE | 2018-08-20 00:14 | NUR ---
Pt resting comfortably on hospital bed. No immediate needs. Sitter in hallway.
--- NOTE | 2018-08-20 00:16 | NUR ---
[facility] contacted this RN and states their psychiatrist will not accept pt until a UA is completed. Awating UA results.
--- NOTE | 2018-08-20 00:42 | NUR ---
break rn. pt resting calmly, nadn, sitter at doorway for continous monitoring.
--- NOTE | 2018-08-20 01:15 | NUR ---
Pt resting comfortably on hospital bed. No immediate needs. Sitter in hallway.
--- NOTE | 2018-08-20 02:14 | NUR ---
Pt resting comfortably on hospital bed. No immediate needs. Sitter in hallway.
--- NOTE | 2018-08-20 03:41 | NUR ---
Pt resting comfortably on hospital bed. No immediate needs. Sitter in hallway.
--- NOTE | 2018-08-20 05:11 | NUR ---
Pt resting comfortably on hospital bed. No immediate needs. Sitter in hallway.
--- NOTE | 2018-08-20 05:23 | NUR ---
JONY FROM [facility] CALLED AND DENIED PT DUE TO THEIR DOCTOR BELIEVING THE CONDITION IS CAUSED BY THE UTI.
--- NOTE | 2018-08-20 06:41 | NUR ---
Pt resting comfortably on hospital bed. No immediate needs. Sitter in hallway.
--- NOTE | 2018-08-20 06:53 | NUR ---
PT REPORT TO ALBA MENDEZ.
--- NOTE | 2018-08-20 07:15 | NUR ---
PT. IS RESTING WITHOUT CONCERNS. SITTER OUTSIDE. ROOM SECURED.
--- NOTE | 2018-08-20 08:18 | NUR ---
PT. WAS GIVEN BREAKFAST.
--- NOTE | 2018-08-20 09:03 | NUR ---
PT RESTING WITH NO CONCERNS, SITTER OUTSIDE ROOM
[2018-08-20] MEDS ORDERED: CEFDINIR 300 MG CAPSULE ONE ×2 (09:21→20:26)
[2018-08-20] MEDS ORDERED: ACETAMINOPHEN 325 MG TABLET ONE (09:21)
[2018-08-20] MEDS ORDERED: LORazepam 1MG TABLET ONE (09:21)
[2018-08-20] MEDS: CEFDINIR 300 MG CAPSULE PO SCH ×2 (09:24→21:02)
[2018-08-20] MEDS ORDERED: ACETAMINOPHEN 325 MG TABLET PO ONE (09:30)
[2018-08-20] MEDS ORDERED: LORazepam 1MG TABLET PO ONE (09:30)
--- NOTE | 2018-08-20 09:45 | NUR ---
REPORT TO RUSTY FROM [place], TO HAVE MD HWANG PT FOR ACCEPTANCE
--- NOTE | 2018-08-20 09:58 | NUR ---
PT. IS REFUSING TO TAKE HER MEDICATIONS. PT. WAS SITTING ON THE SIDE OF THE BED LEANING OVER. PT. WILL NOT SPEAK TO THE RN. RN PLACED THE PT. BACK IN BED TO PREVENT HER FROM FALLING. SIDERAILS ARE UP X 4. HOB IS ELEVATED. PT. HAS A SITTER OUTSIDE OF THE ROOM.
--- NOTE | 2018-08-20 10:17 | NUR ---
THROUGHPUT RN: JENNA FROM [facility] CALLED AND STATED PT WAS DECLINED.
--- NOTE | 2018-08-20 10:20 | NUR ---
FLORY RN; SPOKE W/ RUSTY FROM [facility] WHO STATES THEY WILL TALK TO PT SKILLED NURSING AND HAVE AN ANSWER SHORTLY AFTER.
--- NOTE | 2018-08-20 10:39 | NUR ---
PT HAD LARGE BM ON FLOOR, PT TAKEN TO BATHROOM BY TECH AND PROVIDED NEW SHEETS, GOWN AND BLANKET WITH DISPOSABLE CORTEZ
--- NOTE | 2018-08-20 10:46 | NUR ---
THROUGHPUT RN: SPOKE W/ BUZZ FROM [facility] WHO STATES PT IS TOO MEDICALLY COMPLEX FOR [facility].
--- NOTE | 2018-08-20 10:54 | NUR ---
THROUGHPUT RN: SPOKE W/ ISELA FROM [facility] WHO STATES SHE WILL HAVE VANDA, INTAKE LOOK AT PT CHART.
--- NOTE | 2018-08-20 11:18 | NUR ---
PT RESTING IN BED, NO CONCERNS AT THIS TIME, SITTER AT DOORWAY
--- NOTE | 2018-08-20 11:53 | NUR ---
THROUGHPUT RN: DEANN W/ SUBHASH FROM [facility] WHO WILL SEND RN TO EVALUATE PT.
--- NOTE | 2018-08-20 12:06 | NUR ---
PT RESTING IN BED, NO CONCERNS AT THIS TIME, SITTER AT DOORWAY. DIET TRAY ORDERED
--- NOTE | 2018-08-20 12:12 | NUR ---
THROUGHPUT RN: DEANN No/ YAMILET FROM [facility] WHO STATES PT DOES NOT MEET CRITERIA FOR THEIR FACILITY.
--- NOTE | 2018-08-20 13:09 | NUR ---
PT RESTING IN BED, REQUESTING HOME MEDICATIONS FOR THIS JASON, PT UPDATED ON POC, WORKING ON PLACEMENT. SITTER AT DOORWAY. 50% DIET TRAY EATEN
--- NOTE | 2018-08-20 14:03 | NUR ---
PT UP TO BATHROOM MULTIPLE TIMES, WALKING AROUND ROOM, DOES NOT APPEAR AGITATED, NO CONCERNS AT THIS TIME, SITTER AT DOORWAY
--- NOTE | 2018-08-20 14:09 | NUR ---
THROUGHPUT RN: DEANN W/ SUBHASH FROM [facility] WHO WILL SEND RN TO EVALUATE PT.
--- NOTE | 2018-08-20 15:04 | NUR ---
PT RESTING IN BED, AT TIMES PACING AROUND ROOM, CALM AND COOPERATIVE, SITTER AT DOORWAY
--- NOTE | 2018-08-20 15:55 | NUR ---
THROUGHPUT RN: SPOKE W/ VANDA FROM [facility] WHO IS DECLINING PT.
--- NOTE | 2018-08-20 16:08 | NUR ---
THROUGHPUT RN: SPOKE W/ MARILY FROM [facility] WHO DECLINED PT.
--- NOTE | 2018-08-20 16:08 | NUR ---
PT RESTING IN BED, AT TIMES PACING AROUND ROOM, CALM AND COOPERATIVE, SITTER AT DOORWAY
--- NOTE | 2018-08-20 17:08 | NUR ---
PT RESTING IN BED AND AT TIMES PACING AROUND ROOM, CALM AND COOPERATIVE, SITTER AT DOORWAY
--- NOTE | 2018-08-20 18:09 | NUR ---
PT IN HALLWAY TALKING TO SITTER, PT CALM AND COOPERATIVE. NO NEEDS AT THIS TIME
--- NOTE | 2018-08-20 18:48 | NUR ---
PT REPORT FROM EMMETT MENDEZ. THIS RN TO ASSUME CARE OF PT. NO IMMEDIATE NEEDS. ROLLER DOORS IN PLACE. SITTER IN HALLWAY.
--- NOTE | 2018-08-20 20:19 | NUR ---
Pt asking for food. Full meal tray in front of pt from dinner. "i didnt like dinner." coffee cart closed at 1999 this pm. Given crackers and pudding.
--- NOTE | 2018-08-20 21:27 | NUR ---
Pt resting comfortably on hospital bed. No immediate needs. Sitter in hallway.
--- NOTE | 2018-08-20 22:53 | NUR ---
Pt resting comfortably on hospital bed. No immediate needs. Sitter in hallway.
--- NOTE | 2018-08-21 00:13 | NUR ---
Pt asking for trazadone for sleep. States takes it at home. ERP notified. This RN to give per JUL.
[2018-08-21] MEDS ORDERED: TRAZODONE 50MG TABLET ONE ×2 (00:22→00:24)
[2018-08-21] MEDS ORDERED: TRAZODONE 50MG TABLET PO ONE (00:30)
--- NOTE | 2018-08-21 02:12 | NUR ---
Pt sleeping comfortably on hospital bed. RR even and ulnabored. No immediate needs. Sitter in hallway.
--- NOTE | 2018-08-21 03:55 | NUR ---
Pt sleeping comfortably on hospital bed. RR even and unlabored. No immediate needs. Sitter in hallway.
--- NOTE | 2018-08-21 04:32 | NUR ---
Brenda reyes in ED - 08/21/18 at 0434 by NASIR Pt getting extremely agitated and asking for thorazine shots over and over. Blood to draw from pt and pt getting agitated and yelling "stop stop stop" over and over.
--- NOTE | 2018-08-21 04:42 | NUR ---
Pt sleeping comfortably on hospital bed. RR even and unlabored. No immediate needs. Sitter in hallway.
--- NOTE | 2018-08-21 05:17 | NUR ---
Pt sleeping comfortably on hospital bed. RR even and unlabored. No immediate needs. Sitter in hallway.
[2018-08-21] MEDS ORDERED: ACETAMINOPHEN 325 MG TABLET ONE ×2 (05:20→16:57)
--- NOTE | 2018-08-21 05:23 | NUR ---
Pt requested tylenol. MD notified. Verbal order of 650 mg tylenol given po at this time.
[2018-08-21] MEDS ORDERED: ACETAMINOPHEN 325 MG TABLET PO ONE (05:30)
--- NOTE | 2018-08-21 06:39 | NUR ---
Pt sleeping comfortably on hospital bed. RR even and unlabored. No immediate needs. Sitter in hallway.
--- NOTE | 2018-08-21 06:56 | NUR ---
PT REPORT TO SAKINA MENDEZ.
--- NOTE | 2018-08-21 07:00 | NUR ---
RECEIVED REPORT FROM FORTUNATO CHAVIRA RN. PT RESTING IN BED. RUDY. SITTER REMAINS AT BEDSIDE. ROOM REMAINS SECURE.
--- NOTE | 2018-08-21 07:31 | NUR ---
PT VERBALIZES "I CAN'T GO ON ANYMORE. 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 I'M TIRED. EVERYONE IS AGAINST ME. MY DAUGHTER'S ARE AGAINST ME". SPOKE W/ PT ABOUT POC FOR THIS ADMISSION. PT STATES SHE IS AGREEABLE W/ POC. PT NOW RESTING IN BED. ROOM REMAINS SECURE. SITTER REMAINS AT BEDSIDE.
[2018-08-21] MEDS: CEFDINIR 300 MG CAPSULE PO SCH ×2 (08:19→20:48)
--- NOTE | 2018-08-21 08:23 | NUR ---
PT PROVIDED W/ BREAKFAST MEAL TRAY X 2. PT RESTING IN BED. NADN. VSS. MEDICATED PER JUL. SITTER REMAINS AT BEDSIDE. ROOM REMAINS SECURE.
--- NOTE | 2018-08-21 09:05 | NUR ---
REPORT RECEIVED FROM CATRACHITO MENDEZ. PATIENT RESTING COMFORTABLY ON HOSPITAL BED W/ SIDE RAILS UP. WATCHING TELEVISION. PATIENT A LEGAL HOLD. ROOM SECURED W/ PSYCH PRECAUTIONS. 1:1 SITTER AT BEDSIDE. WILL RE-ASSESS SHORTLY
--- NOTE | 2018-08-21 10:50 | NUR ---
PATIENT RESTING COMFORTABLY ON HOSPITAL BED W/ SIDE RAILS UP. WATCHING TELEVISION. . ROOM SECURED W/ PSYCH PRECAUTIONS. 1:1 SITTER AT BEDSIDE.
--- NOTE | 2018-08-21 11:30 | NUR ---
PATIENT RESTING COMFORTABLY ON HOSPITAL BED W/ SIDE RAILS UP. WATCHING TELEVISION. . ROOM SECURED W/ PSYCH PRECAUTIONS. 1:1 SITTER AT BEDSIDE. LUNCH ORDERED
--- NOTE | 2018-08-21 12:19 | NUR ---
PATIENT RESTING COMFORTABLY ON HOSPITAL BED W/ SIDE RAILS UP. WATCHING TELEVISION. . ROOM SECURED W/ PSYCH PRECAUTIONS. 1:1 SITTER AT BEDSIDE. LUNCH DELIVERED TO BEDSIDE. MEDD RECC COMPLETED
[2018-08-21] MEDS ORDERED: BUSP5TAB2 PO (12:32)
--- NOTE | 2018-08-21 13:22 | NUR ---
PATIENT RESTING COMFORTABLY ON HOSPITAL BED/ SITTING IN BEDSIDE CHAIR OR WALKING COOL W/ EXPANDED FUNCTION DENTAL ASSISTANT OR SITTER. ROOM SECURED W/ PSYCH PRECAUTIONS. 1:1 SITTER AT BEDSIDE.
--- NOTE | 2018-08-21 14:40 | NUR ---
PATIENT RESTING COMFORTABLY ON HOSPITAL BED W/ SIDE RAILS UP. SPENT A FEW MOMENTS TALKING TO PATIENT ALLOWING HER TO VENT/CALRIFYING POC. ROOM SECURED W/ PSYCH PRECAUTIONS. 1:1 SITTER AT BEDSIDE.
--- NOTE | 2018-08-21 15:05 | NUR ---
HOSPITALIST AT BEDSIDE. ROOM REMAINS SECURED WITH PSYCH PRECUATIONS. 1: 1 SITTER AT BEDSIDE. NAD AT THIS TIME
[2018-08-21] MEDS ORDERED: BENZTROPINE 1 MG TABLET PO PRN (15:30)
[2018-08-21] MEDS ORDERED: LORazepam 1MG TABLET PO PRN (15:30)
[2018-08-21] MEDS ORDERED: QUETIAPINE 25MG TABLET PO PRN (15:30)
[2018-08-21] MEDS ORDERED: LORazepam 2 MG/ML, 1ML IM PRN (15:30)
[2018-08-21] MEDS ORDERED: ONDANSETRON ODT 4 MG SL PRN (16:00)
[2018-08-21] MEDS ORDERED: DOCUSATE 100 MG CAPSULE PO PRN (16:00)
--- NOTE | 2018-08-21 16:10 | NUR ---
PATIENT RESTING COMFORTABLY ON HOSPITAL BED W/ SIDE RAILS UP. ROOM SECURED W/ PSYCH PRECAUTIONS. 1:1 SITTER AT BEDSIDE.
[2018-08-21 16:42] LABS: THYROID STIMULATING HORMONE 2.96 mIU/L (0.358-3.740)
--- NOTE | 2018-08-21 16:55 | NUR ---
WITH RE-ASSESSMENT PATIENT REPORTS LUMBAR PAIN "FEELS LIKE MY CHRONIC PAIN". ASKED FOR TYLENOL. MEDICATED WITH 650MG OF TYLENOL. BED ON 2N AVAILABLE- REPORT GIVEN TO PANCHITO MENDEZ PATIENT UPDATED ON ESTIMATED POC
[2018-08-21] MEDS: ACETAMINOPHEN 325 MG TABLET PO PRN (17:02)
[2018-08-21 17:20] VITALS: BP 109/73
[2018-08-21 19:19] VITALS: BP 107/71
[2018-08-21] MEDS: MELATONIN 5 MG TABLET PO SCH (20:47)
[2018-08-21] MEDS: BUSPIRONE 5 MG TABLET PO SCH (20:47)
[2018-08-21] MEDS: AMITRIPTYLINE 75 MG TABLET PO SCH (20:47)
[2018-08-21] MEDS: GABAPENTIN 300 MG CAPSULE PO SCH (20:48)
[2018-08-21] MEDS: TEMAZEPAM 15 MG CAPSULE PO SCH (20:48)
[2018-08-21] MEDS: BUPROPION SR 100 MG TABLET PO SCH (20:48)
[2018-08-22 07:43] VITALS: BP 118/66
[2018-08-22] MEDS: GABAPENTIN 300 MG CAPSULE PO SCH ×2 (08:36→20:35)
[2018-08-22] MEDS: BUSPIRONE 5 MG TABLET PO SCH ×2 (08:36→20:35)
[2018-08-22] MEDS: CEFDINIR 300 MG CAPSULE PO SCH ×2 (08:37→20:35)
[2018-08-22] MEDS: AMLODIPINE 2.5 MG TABLET PO SCH (08:37)
[2018-08-22] MEDS: BUPROPION SR 100 MG TABLET PO SCH ×2 (08:38→20:36)
[2018-08-22] MEDS ORDERED: SERTRALINE 100MG TABLET PO SCH (09:00)
[2018-08-22] MEDS ORDERED: FLUOXETINE HCL 20 MG CAPSULE PO SCH (09:00)
[2018-08-22] MEDS ORDERED: LEVOTHYROXINE 50 MCG TABLET PO SCH (09:00)
[2018-08-22] MEDS: DIGOXIN 0.25 MG TABLET PO SCH (10:40)
[2018-08-22] MEDS ORDERED: ZIPRASIDONE 20 MG INJ IM PRN (16:30)
[2018-08-22] MEDS: ACETAMINOPHEN 325 MG TABLET PO PRN (17:45)
[2018-08-22 20:00] VITALS: BP 128/75
[2018-08-22] MEDS: AMITRIPTYLINE 75 MG TABLET PO SCH (20:35)
[2018-08-22] MEDS: MELATONIN 5 MG TABLET PO SCH (20:35)
[2018-08-22] MEDS: TEMAZEPAM 15 MG CAPSULE PO SCH (20:36)
[2018-08-22] MEDS ORDERED: FAMOTIDINE 20 MG TABLET PO SCH (21:00)
[2018-08-23] MEDS: LEVOTHYROXINE 100 MCG TABLET PO SCH (05:59)
[2018-08-23 08:23] VITALS: BP 119/74
[2018-08-23] MEDS: AMLODIPINE 2.5 MG TABLET PO SCH (08:38)
[2018-08-23] MEDS: GABAPENTIN 300 MG CAPSULE PO SCH ×2 (08:38→20:46)
[2018-08-23] MEDS: CEFDINIR 300 MG CAPSULE PO SCH ×2 (08:38→20:46)
[2018-08-23] MEDS: BUPROPION SR 100 MG TABLET PO SCH ×2 (08:38→20:46)
[2018-08-23] MEDS: BUSPIRONE 5 MG TABLET PO SCH ×2 (08:42→20:45)
[2018-08-23] MEDS: FAMOTIDINE 20 MG TABLET PO SCH ×2 (09:26→20:46)
[2018-08-23] MEDS: FLUOXETINE HCL 20 MG CAPSULE PO SCH (09:26)
[2018-08-23] MEDS: DIGOXIN 0.25 MG TABLET PO SCH (09:31)
[2018-08-23 13:35] LABS: MICROSCOPIC NOT IND
[2018-08-23 13:38] LABS: CULTURE INDICATED? NO
[2018-08-23 19:32] VITALS: BP 116/62
[2018-08-23] MEDS: AMITRIPTYLINE 75 MG TABLET PO SCH (20:45)
[2018-08-23] MEDS: TEMAZEPAM 15 MG CAPSULE PO SCH (20:46)
[2018-08-23] MEDS: MELATONIN 5 MG TABLET PO SCH ×2 (20:46→21:00)
[2018-08-24] MEDS: LEVOTHYROXINE 100 MCG TABLET PO SCH (06:01)
[2018-08-24] MEDS: CEFDINIR 300 MG CAPSULE PO SCH ×2 (08:02→20:26)
[2018-08-24] MEDS: FAMOTIDINE 20 MG TABLET PO SCH ×2 (08:02→20:25)
[2018-08-24] MEDS: GABAPENTIN 300 MG CAPSULE PO SCH ×2 (08:03→20:24)
[2018-08-24] MEDS: BUSPIRONE 5 MG TABLET PO SCH ×2 (08:03→20:25)
[2018-08-24] MEDS: BUPROPION SR 100 MG TABLET PO SCH ×2 (08:03→20:25)
[2018-08-24] MEDS: FLUOXETINE HCL 20 MG CAPSULE PO SCH (08:03)
[2018-08-24] MEDS: DIGOXIN 0.25 MG TABLET PO SCH (08:09)
[2018-08-24] MEDS: AMLODIPINE 2.5 MG TABLET PO SCH (08:09)
[2018-08-24 08:22] VITALS: BP 133/74
[2018-08-24 19:57] VITALS: BP 134/75
[2018-08-24] MEDS: MELATONIN 5 MG TABLET PO SCH (20:24)
[2018-08-24] MEDS: TEMAZEPAM 15 MG CAPSULE PO SCH (20:24)
[2018-08-24] MEDS: AMITRIPTYLINE 75 MG TABLET PO SCH (20:25)
[2018-08-25 07:36] VITALS: BP 119/65
[2018-08-25] MEDS: BUSPIRONE 5 MG TABLET PO SCH ×2 (08:02→19:36)
[2018-08-25] MEDS: DIGOXIN 0.25 MG TABLET PO SCH (08:02)
[2018-08-25] MEDS: AMLODIPINE 2.5 MG TABLET PO SCH (08:02)
[2018-08-25] MEDS: BUPROPION SR 100 MG TABLET PO SCH ×2 (08:02→19:36)
[2018-08-25] MEDS: GABAPENTIN 300 MG CAPSULE PO SCH ×2 (08:02→19:36)
[2018-08-25] MEDS: FAMOTIDINE 20 MG TABLET PO SCH ×2 (08:02→19:37)
[2018-08-25] MEDS: FLUOXETINE HCL 20 MG CAPSULE PO SCH (08:04)
[2018-08-25] MEDS: LEVOTHYROXINE 100 MCG TABLET PO SCH (08:04)
[2018-08-25] MEDS: CEFDINIR 300 MG CAPSULE PO SCH ×2 (08:04→19:36)
[2018-08-25 19:17] VITALS: BP 108/62
[2018-08-25] MEDS: MELATONIN 5 MG TABLET PO SCH (19:37)
[2018-08-25] MEDS: TEMAZEPAM 15 MG CAPSULE PO SCH (19:37)
[2018-08-25] MEDS: AMITRIPTYLINE 75 MG TABLET PO SCH (19:37)
[2018-08-25] MEDS: ACETAMINOPHEN 325 MG TABLET PO PRN (20:53)
[2018-08-26 07:32] VITALS: BP_SYST 108; BP_SYST 123; BP_DIAS 37; BP_DIAS 64
[2018-08-26] MEDS: LEVOTHYROXINE 100 MCG TABLET PO SCH (07:38)
[2018-08-26] MEDS: BUSPIRONE 5 MG TABLET PO SCH ×2 (08:34→21:00)
[2018-08-26] MEDS: FLUOXETINE HCL 20 MG CAPSULE PO SCH (08:35)
[2018-08-26] MEDS: GABAPENTIN 300 MG CAPSULE PO SCH ×2 (08:35→20:52)
[2018-08-26] MEDS: AMLODIPINE 2.5 MG TABLET PO SCH (08:35)
[2018-08-26] MEDS: CEFDINIR 300 MG CAPSULE PO SCH ×2 (08:35→20:52)
[2018-08-26] MEDS: BUPROPION SR 100 MG TABLET PO SCH ×2 (08:36→20:52)
[2018-08-26] MEDS: FAMOTIDINE 20 MG TABLET PO SCH ×2 (08:36→20:53)
[2018-08-26] MEDS: DIGOXIN 0.25 MG TABLET PO SCH (08:50)
[2018-08-26] MEDS: ACETAMINOPHEN 325 MG TABLET PO PRN ×2 (09:47→18:55)
[2018-08-26 19:27] VITALS: BP 125/61
[2018-08-26] MEDS: TEMAZEPAM 15 MG CAPSULE PO SCH (20:52)
[2018-08-26] MEDS: MELATONIN 5 MG TABLET PO SCH (21:00)
[2018-08-26] MEDS: AMITRIPTYLINE 50 MG TABLET PO SCH (22:13)
[2018-08-27 07:20] VITALS: BP 125/70
[2018-08-27] MEDS: DIGOXIN 0.25 MG TABLET PO SCH (08:04)
[2018-08-27] MEDS: LEVOTHYROXINE 100 MCG TABLET PO SCH (08:04)
[2018-08-27] MEDS: BUSPIRONE 5 MG TABLET PO SCH ×2 (08:04→20:25)
[2018-08-27] MEDS: GABAPENTIN 300 MG CAPSULE PO SCH ×2 (08:05→20:26)
[2018-08-27] MEDS: AMLODIPINE 2.5 MG TABLET PO SCH (08:05)
[2018-08-27] MEDS: FAMOTIDINE 20 MG TABLET PO SCH ×2 (08:06→20:25)
[2018-08-27] MEDS: FLUOXETINE HCL 20 MG CAPSULE PO SCH (08:06)
[2018-08-27] MEDS: BUPROPION SR 100 MG TABLET PO SCH ×2 (08:06→20:26)
[2018-08-27] MEDS: CEFDINIR 300 MG CAPSULE PO SCH ×2 (08:06→20:25)
[2018-08-27] MEDS: ACETAMINOPHEN 325 MG TABLET PO PRN (18:40)
[2018-08-27 20:00] VITALS: BP 124/68
[2018-08-27] MEDS: MELATONIN 5 MG TABLET PO SCH (20:22)
[2018-08-27] MEDS: AMITRIPTYLINE 50 MG TABLET PO SCH (20:31)
[2018-08-27] MEDS ORDERED: AMITRIPTYLINE 50 MG TABLET PO SCH (21:00)
[2018-08-27] MEDS: TEMAZEPAM 15 MG CAPSULE PO SCH (21:30)
[2018-08-28] MEDS: LEVOTHYROXINE 100 MCG TABLET PO SCH (07:45)
[2018-08-28 08:00] VITALS: BP 116/61
[2018-08-28] MEDS: BUSPIRONE 5 MG TABLET PO SCH (08:12)
[2018-08-28] MEDS: AMLODIPINE 2.5 MG TABLET PO SCH (08:12)
[2018-08-28] MEDS: CEFDINIR 300 MG CAPSULE PO SCH (08:12)
[2018-08-28] MEDS: DIGOXIN 0.25 MG TABLET PO SCH (08:13)
[2018-08-28] MEDS: GABAPENTIN 300 MG CAPSULE PO SCH (08:13)
[2018-08-28] MEDS: FAMOTIDINE 20 MG TABLET PO SCH (08:13)
[2018-08-28] MEDS: BUPROPION SR 100 MG TABLET PO SCH (08:13)
[2018-08-28] MEDS: FLUOXETINE HCL 20 MG CAPSULE PO SCH (08:13)
== END 2018-08-28 14:28 | DRG 885 ==
LOC: ED 19:04 → EDIP 08-21 13:05 → 2N 08-21 17:17
PROVIDERS: ADMIT Hospitalist; ATTEND Hospitalist
DX: F23 Brief psychotic disorder (principal); N30.00 Acute cystitis without hematuria; E03.9 Hypothyroidism, unspecified; G30.9 Alzheimer's disease, unspecified; F02.80 Dementia in other diseases classified elsewhere, unspecified severity, without behavioral disturbance, psychotic disturbance, mood disturbance, and anxiety; F20.9 Schizophrenia, unspecified; F32.9 Major depressive disorder, single episode, unspecified; F43.10 Post-traumatic stress disorder, unspecified; G47.00 Insomnia, unspecified; G62.9 Polyneuropathy, unspecified; K21.9 Gastro-esophageal reflux disease without esophagitis; Z96.642 Presence of left artificial hip joint; G31.84 Mild cognitive impairment of uncertain or unknown etiology; I11.0 Hypertensive heart disease with heart failure; I50.9 Heart failure, unspecified; I25.10 Atherosclerotic heart disease of native coronary artery without angina pectoris; I25.2 Old myocardial infarction; Z86.73 Personal history of transient ischemic attack (TIA), and cerebral infarction without residual deficits; Z98.1 Arthrodesis status; Z88.0 Allergy status to penicillin; Z88.8 Allergy status to other drugs, medicaments and biological substances; F22 Delusional disorders
CPT/HCPCS: 36415; 80053; 80162; 80307; 80329; 81001; 81003; 84443; 85025; 93005; 99285; G0378; G0480